=== PATIENT | male | born 1960 | race Caucasian/White ===

== ENCOUNTER 2021-07-11 18:07 | Inpatient (IN) | payer MEDICAID, OTHER ==
[~2021-07-11] VITALS: Ht 177.8 cm; Wt 101.7 kg
--- NOTE | 2021-07-11 19:20 | NUR ---
pt bibs c/o Abdominal discomfort and urinary frequency x 3 weeks. pt alert and oriented x3. ambulatory with non labored breathing.
[2021-07-11 19:53] LABS: CREATININE 0.7 mg/dL (0.6-1.3); POTASSIUM 3.7 mmol/L (3.5-5.1)
[2021-07-11 19:55] LABS: BASOPHILS % (AUTO) 0.6 % (0.0-2.0); EOSINOPHILS % (AUTO) 2.6 % (0.0-6.0); HEMATOCRIT 42 % (39-51); HEMOGLOBIN 14.2 g/dL (13.5-17.5); LYMPHOCYTES # (AUTO) 0.7 K/uL (0.8-4.8); LYMPHOCYTES % (AUTO) 15.7 % (20.0-44.0); MEAN CORPUSCULAR HGB CONC 34 g/dl (31.0-36.0); MEAN CORPUSCULAR VOLUME 110 fL (80-96); MONOCYTES # (AUTO) 0.6 K/uL (0.1-1.30); MONOCYTES % (AUTO) 12.8 % (2.0-12.0); NEUTROPHILS # (AUTO) 3.1 K/uL (1.8-8.9); NEUTROPHILS % (AUTO) 68.3 % (43.0-81.0); PLATELET COUNT (AUTO) 88 K/uL (150-450); RED BLOOD CELL COUNT(AUTO) 3.82 MIL/uL (4.5-6.0); WHITE BLOOD COUNT (AUTO) 4.6 K/uL (4.3-11.0)
[2021-07-11] MEDS ORDERED: IOHEXOL-300 100 ML VIAL IV ONE (19:58)
[2021-07-11 19:59] LABS: ALBUMIN 2.3 g/dL (3.4-5.0); BILIRUBIN,DIRECT 5.8 mg/dL (0.0-0.2); BILIRUBIN,TOTAL 7.5 mg/dL (0.2-1.0); TOTAL PROTEIN, SERUM 6.9 g/dL (6.4-8.2)
[2021-07-11 20:31] LABS: BAND % (MANUAL) 1 % (0.0-5.0); EOSINOPHILS % (MANUAL) 3 % (0-4); LYMPHOCYTES % (MANUAL) 19 % (16-48); MONOCYTES % (MANUAL) 7 % (0-11.0); NEUTROPHILS % (MANUAL) 70 (42-76)
[2021-07-11] MEDS ORDERED: IV NS 0.9% 1,000 ML BAG IV ONE (22:00)
[2021-07-11 22:27] LABS: BILIRUBIN,URINE LARGE (NEGATIVE); COLOR,URINE AMBER (YELLOW); LEUKOCYTE ESTERASE ,URINE NEGATIVE (NEGATIVE); NITRITE, URINE POSITIVE (NEGATIVE); PH,URINE 7.5 (5.0-8.0); PROTEIN,URINE TRACE mg/dl (NEGATIVE); UGLUCOSE 100 MG/DL mg/dL (NEGATIVE); UROBILINOGEN,URINE >=8.0 EU/dL (0.2)
--- NOTE | 2021-07-11 22:58 | NUR ---
SPOKE WITH INSURANCE
[2021-07-11] MEDS ORDERED: CEFTRIAXONE 1 G VIAL ONE (22:59)
[2021-07-11] MEDS ORDERED: CEFTRIAXONE 1GM BAG (ER ONLY) 1 GM/50 ML PIGGYBACK IV ONE (23:00)
--- NOTE | 2021-07-12 02:07 | NUR ---
REPORT GIVEN TO PHAN
--- NOTE | 2021-07-12 02:15 | NUR ---
PATIENT BEING TRANSFERRRED TO [facility]
[2021-07-12 02:20] VITALS: BP 126/84
[2021-07-12 02:57] LABS: BACTERIA,URINE None seen /HPF (None Seen); RBC,URINE 0-2 /HPF (0-2); SQUAMOUS EPITHELIAL CELL,UR None Seen /HPF (None Seen); WBC,URINE 0-2 /HPF (0-3)
[2021-07-12] MEDS ORDERED: Z GUARD REMEDY 2 OZ OINT TP PRN (04:00)
[2021-07-12] MEDS ORDERED: ONDANSETRON HCL/PF 4 MG/2 ML VIAL IVP PRN (04:00)
[2021-07-12] MEDS: IV NS 0.9% 1,000 ML IV PRN (04:59)
[2021-07-12 06:49] LABS: BASOPHILS % (AUTO) 0.6 % (0.0-2.0); EOSINOPHILS % (AUTO) 3.4 % (0.0-6.0); HEMATOCRIT 38 % (39-51); HEMOGLOBIN 13.2 g/dL (13.5-17.5); LYMPHOCYTES # (AUTO) 0.6 K/uL (0.8-4.8); LYMPHOCYTES % (AUTO) 15.1 % (20.0-44.0); MEAN CORPUSCULAR HGB CONC 34 g/dl (31.0-36.0); MEAN CORPUSCULAR VOLUME 110 fL (80-96); MONOCYTES # (AUTO) 0.6 K/uL (0.1-1.30); MONOCYTES % (AUTO) 13.8 % (2.0-12.0); NEUTROPHILS # (AUTO) 2.8 K/uL (1.8-8.9); NEUTROPHILS % (AUTO) 67.1 % (43.0-81.0); PLATELET COUNT (AUTO) 76 K/uL (150-450); RED BLOOD CELL COUNT(AUTO) 3.49 MIL/uL (4.5-6.0); WHITE BLOOD COUNT (AUTO) 4.2 K/uL (4.3-11.0)
[2021-07-12 07:04] LABS: CALCIUM, SERUM 7.8 mg/dL (8.5-10.1); CREATININE 0.6 mg/dL (0.6-1.3); MAGNESIUM 1.8 mg/dL (1.8-2.4); POTASSIUM 3.7 mmol/L (3.5-5.1)
[2021-07-12 07:07] LABS: THYROID STIMULATING HORMONE 1.617 uIU/mL (0.358-3.74)
[2021-07-12 08:00] VITALS: BP 118/76
[2021-07-12] MEDS: PANTOPRAZOLE 40 MG TABLET.DR PO SCH (08:35)
[2021-07-12 11:04] LABS: EOSINOPHILS % (MANUAL) 5 % (0-4); LYMPHOCYTES % (MANUAL) 17 % (16-48); MONOCYTES % (MANUAL) 12 % (0-11.0); NEUTROPHILS % (MANUAL) 66 (42-76)
[2021-07-12 12:00] VITALS: BP 120/76
--- NOTE | 2021-07-12 13:42 | NUR ---
MS/RN NEW ORDERS FROM DR MRAIN RECEIVED AND CARRIED OUT
[2021-07-12] MEDS: NICOTINE PATCH (14MG) 14 MG PATCH.TD24 TD SCH (14:45)
[2021-07-12 16:00] VITALS: BP 101/60
--- NOTE | 2021-07-12 18:23 | NUR ---
MS RN CLOSING NOTE PATIENT RESTING IN BED, APPEARS COMFORTABLE AND NOT IN ANY DISTRESS. PT IS STABLE ON ROOM AIR, NO SOB OR S/S OF RESPIRATORY DISTRESS NOTED. IV ACCESS INTACT AND INFUSING WELL. MEDICATIONS GIVEN ORDERED, PT NEEDS MET THROUGHOUT SHIFT. SAFETY PRECAUTIONS IN PLACE: BED LOCKED IN LOW POSITION, SIDE RAILS UP X2, CALL LIGHT AND TABLE WITHIN REACH. WILL ENDORSE TO VACUUM CLEANER REPAIRER NURSE FOR CONTINUITY OF CARE
--- NOTE | 2021-07-12 19:10 | NUR ---
MS RN OPENING NOTES: RECEIVED PATIENT IN BED, EATING, A/O X4. NO S/S OF DISTRESS NOTED. NO COMPLAIN OF PAIN. CALL LIGHT WITHIN REACH. BED IN LOWEST AND LOCKED POSITION. BED ALARM ON.
--- NOTE | 2021-07-12 19:32 | NUR ---
in bed alert and orientated x4 no pain at this time states the numbness comes and goes in his right arm and hand movement in his extremities all within normal ROM resp even and unlabored SR on the monitor swallows w/o problems
[2021-07-12 20:00] VITALS: BP 118/72
[2021-07-12] MEDS: ACETAMINOPHEN 325 MG TABLET PO PRN ×2 (20:22→23:10)
[2021-07-12] MEDS: CEFTRIAXONE 1 G in IV D5W 50 ML IV SCH (23:02)
[2021-07-12] MEDS: ZOLPIDEM TARTRATE 5 MG TABLET PO PRN (23:10)
[2021-07-13] MEDS: MORPHINE SULFATE INJ 2 MG/ML DISP.SYRIN IV PRN ×2 (00:04→15:41)
--- NOTE | 2021-07-13 07:15 | NUR ---
Opening note: In bed alert and oriented x4 No pain at this time movement in extremities all within normal ROM Resp even and unlabored swallows w/o problems Addendum: 07/13/21 at 1114 by HAMZAH WANG RN MS Opening note RECEIVED PATIENT ALERT AND ORIENTED X4 PATIENT WITH REGULAR AND UNLABORED BREATHING ON ROOM AIR, TOLERATED WELL. NO SIGNS AND SYMPTOMS OF DISTRESS NOTED. NO COMPLAIN OF PAIN OR DISCOMFORT AT THIS TIME. PATIENT IS AMBULATORY WITH NO WEAKNESS NOTED. WITH IV ACCESS LEFT AC G18 ON NS @ 75ML/HR ACCESS PATENT AND INTACT. LEFT KNEE AND LEFT LEG SCABS, LEFT ARM BRUISE AND RLQ ABDOMEN BRUISE SAFETY PRECAUTIONS ENFORCED WITH BED LOCKED AND AT LOWEST POSITION SIDERAILS UP. CALL LIGHT WITHUN REACH AT ALL TIMES. WILL CONTINUE TO MONITOR.
[2021-07-13 07:34] LABS: CHOLESTEROL 117 mg/dL (<200); HDL CHOLESTEROL 10 mg/dL (40-60); LDL 85 mg/dL (0-99); TRIGLYCERIDES 155 mg/dL (30-150)
[2021-07-13 08:00] VITALS: BP 123/79
[2021-07-13] MEDS: NICOTINE PATCH (14MG) 14 MG PATCH.TD24 TD SCH (08:37)
[2021-07-13] MEDS: PANTOPRAZOLE 40 MG TABLET.DR PO SCH (08:37)
[2021-07-13] MEDS: ALBUTEROL FS 2.5 MG/0.5 ML VIAL.NEB HHN PRN (09:53)
[2021-07-13] MEDS: IV NS 0.9% 1,000 ML IV PRN ×2 (10:10→23:20)
--- NOTE | 2021-07-13 10:41 | NUR ---
MS RN NOTE PATIENT SEEN BY DR. DAVILA.
[2021-07-13 16:00] VITALS: BP 125/73
--- NOTE | 2021-07-13 16:30 | NUR ---
MS RN NOTE PER DR. BRANTLEY, CONTINUE SAME IV FLUID. PHARMACIST NOTIFIED.
--- NOTE | 2021-07-13 18:49 | NUR ---
MS CLOSING RN NOTE PATIENT ALERT AND ORIENTED X4 PATIENT WITH REGULAR AND UNLABORED BREATHING ON ROOM AIR, TOLERATED WELL. NO SIGNS AND SYMPTOMS OF DISTRESS NOTED. NO COMPLAIN OF PAIN OR DISCOMFORT AT THIS TIME. PATIENT IS AMBULATORY WITH NO WEAKNESS NOTED. WITH IV ACCESS LEFT AC G18 ON NS @ 75ML/HR ACCESS PATENT AND INTACT. LEFT KNEE AND LEFT LEG SCABS, LEFT ARM BRUISE AND RLQ ABDOMEN BRUISE SAFETY PRECAUTIONS ENFORCED WITH BED LOCKED AND AT LOWEST POSITION SIDERAILS UP. CALL LIGHT WITHUN REACH AT ALL TIMES. WILL ENDORSE CONTINUITY OF CARE TO NEXT SHIFT.
--- NOTE | 2021-07-13 20:00 | NUR ---
Patient is A&Ox4. VSS. No signs of distress. Slightly jaundiced skin, apparent ascites, tea-colored urine in urinal. Patient states current issue is mild abdominal pain, mild headache, and lack of appetite. Will give PRN tylenol as ordered and educate patient to use sparingly d/t liver complications. O2 sat 90% on RA says he feels slightly SOB given 2L O2 via NC. Will continue to monitor.
--- NOTE | 2021-07-13 20:20 | NUR ---
O2 sat went up to 97% on 2L NC.
[2021-07-13] MEDS: ACETAMINOPHEN 325 MG TABLET PO PRN (21:21)
[2021-07-13 21:49] VITALS: BP 119/56
--- NOTE | 2021-07-13 22:00 | NUR ---
Patient reports headache relief but still has tolerable abdominal discomfort d/t ascites. Educated on how positioning might affect comfort.
[2021-07-13] MEDS: CEFTRIAXONE 1 G in IV D5W 50 ML IV SCH (23:14)
--- NOTE | 2021-07-14 00:30 | NUR ---
Read through noted and saw "NPO" for patient. Removed fluids from patients room and hung NPO sign outside of patient's door. Will educate patient when he wakes.
[2021-07-14 06:29] LABS: BASOPHILS % (AUTO) 0.4 % (0.0-2.0); EOSINOPHILS % (AUTO) 2.6 % (0.0-6.0); HEMATOCRIT 36 % (39-51); HEMOGLOBIN 12.3 g/dL (13.5-17.5); LYMPHOCYTES # (AUTO) 0.7 K/uL (0.8-4.8); LYMPHOCYTES % (AUTO) 15.6 % (20.0-44.0); MEAN CORPUSCULAR HGB CONC 34 g/dl (31.0-36.0); MEAN CORPUSCULAR VOLUME 110 fL (80-96); MONOCYTES # (AUTO) 0.5 K/uL (0.1-1.30); MONOCYTES % (AUTO) 10.1 % (2.0-12.0); NEUTROPHILS # (AUTO) 3.2 K/uL (1.8-8.9); NEUTROPHILS % (AUTO) 71.3 % (43.0-81.0); PLATELET COUNT (AUTO) 93 K/uL (150-450); RED BLOOD CELL COUNT(AUTO) 3.29 MIL/uL (4.5-6.0); WHITE BLOOD COUNT (AUTO) 4.5 K/uL (4.3-11.0)
[2021-07-14 06:44] LABS: CALCIUM, SERUM 7.4 mg/dL (8.5-10.1); CREATININE 0.7 mg/dL (0.6-1.3); MAGNESIUM 1.6 mg/dL (1.8-2.4); PHOSPHORUS 2.9 mg/dL (2.5-4.9); POTASSIUM 3.3 mmol/L (3.5-5.1)
--- NOTE | 2021-07-14 06:54 | NUR ---
Patient has been A&Ox4. able to lay on his side overnight to avoid pressure of ascites on him. Patient reports no longer SOB and slept well throughout night though easy to wake. No signs of distress. Tolerated IV ABX well, no ase.
[2021-07-14 06:56] LABS: ALBUMIN 1.8 g/dL (3.4-5.0); BILIRUBIN,DIRECT 4.9 mg/dL (0.0-0.2); BILIRUBIN,TOTAL 6.1 mg/dL (0.2-1.0); TOTAL PROTEIN, SERUM 5.8 g/dL (6.4-8.2)
--- NOTE | 2021-07-14 07:30 | NUR ---
PT RECEIVED RESTING COMFORTABLY IN BED. NO S/S OR C/O PAIN OR DISTRESS NOTED. SIDE RAILS UP X2, CALL LIGHT LEFT WITHIN REACH. WILL CONTINUE PLAN OF CARE.
[2021-07-14 08:06] VITALS: BP 113/83
[2021-07-14] MEDS ORDERED: POTASSIUM CHLORIDE 20 MEQ TAB.PRT.SR PO SCH (08:30)
[2021-07-14] MEDS: NICOTINE PATCH (14MG) 14 MG PATCH.TD24 TD SCH (10:32)
[2021-07-14] MEDS: Magnesium 1GM/D5W 100ML PREMIX 100 ML IV SCH ×2 (10:32→11:39)
[2021-07-14] MEDS: PANTOPRAZOLE 40 MG TABLET.DR PO SCH (10:32)
[2021-07-14] MEDS: MORPHINE SULFATE INJ 2 MG/ML DISP.SYRIN IV PRN ×2 (15:07→23:26)
[2021-07-14 16:37] VITALS: BP 122/76
--- NOTE | 2021-07-14 17:45 | NUR ---
NOTIFIED TOMAS OF MRCP RESULTS. AWAITING ORDERS.
[2021-07-14] MEDS: IV NS 0.9% 1,000 ML IV PRN (18:29)
--- NOTE | 2021-07-14 18:48 | NUR ---
CHANGE OF SHIFT REPORT PT RESTING COMFORTABLY IN BED. NO S/S OR C/O PAIN OR DISTRESS NOTED. SIDE RAILS UP X2, CALL LIGHT LEFT WITHIN REACH. PT KEPT CLEAN DRY, AND COMFORTABLE. NO SIGNIFICANT CHANGES SINCE PREVIOUS SHIFT.
--- NOTE | 2021-07-14 19:20 | NUR ---
RN NOTES RECEIVED PT AWAKE IN BED, WATCHING TV. A/OX4. ABLE TO VERBALIZE ALL NEEDS. HE DENIES PAIN, DENIES SOB AT THIS TIME. RESPIRATIONS EVEN/UNLABORED. IV SITE: [facility] INTACT/PATENT, ONGOING NS @75ML/HR AND RAFFY WELL. NPO OBSERVED. PT VERBALIZED UNDERSTANDING. PT IN NO ACUTE DISTRESS. SAFETY MEASURES IN PLACE, BED IN LOWEST LOCKED POSITION, S/R UPX2, CALL LIGHT WITHIN REACH. WILL CONT TO MONITOR.
[2021-07-14 20:00] VITALS: BP_SYST 105; BP_SYST 113; BP_DIAS 58; BP_DIAS 62
[2021-07-14] MEDS: CEFTRIAXONE 1 G in IV D5W 50 ML IV SCH (22:54)
[2021-07-15] MEDS: ZOLPIDEM TARTRATE 5 MG TABLET PO PRN (03:12)
[2021-07-15 06:26] LABS: BASOPHILS % (AUTO) 0.4 % (0.0-2.0); EOSINOPHILS % (AUTO) 2.8 % (0.0-6.0); HEMATOCRIT 37 % (39-51); HEMOGLOBIN 12.8 g/dL (13.5-17.5); LYMPHOCYTES # (AUTO) 0.8 K/uL (0.8-4.8); LYMPHOCYTES % (AUTO) 12.9 % (20.0-44.0); MEAN CORPUSCULAR HGB CONC 35 g/dl (31.0-36.0); MEAN CORPUSCULAR VOLUME 110 fL (80-96); MONOCYTES # (AUTO) 0.4 K/uL (0.1-1.30); MONOCYTES % (AUTO) 7.6 % (2.0-12.0); NEUTROPHILS # (AUTO) 4.5 K/uL (1.8-8.9); NEUTROPHILS % (AUTO) 76.3 % (43.0-81.0); PLATELET COUNT (AUTO) 102 K/uL (150-450); RED BLOOD CELL COUNT(AUTO) 3.36 MIL/uL (4.5-6.0); WHITE BLOOD COUNT (AUTO) 5.9 K/uL (4.3-11.0)
--- NOTE | 2021-07-15 06:54 | NUR ---
RN CLOSING NOTES PT RESTING IN BED, EASILY AROUSABLE TO STIMULI, A/OX4. DENIES PAIN/DISCOMFORT AT THIS TIME. RESPIRATIONS EVEN/UNLABORED. ONGOING IV NS @75ML/HR AND RAFFY WELL. NPO OBSERVED. AMBULATES TO BR WITH SBA PROVIDED. NO ACUTE EVENTS NOTED DURING THE NIGHT. SAFETY MEASURES MAINTAINED. ALL NEEDS ATTENDED TO.
[2021-07-15 07:19] LABS: ALBUMIN 1.9 g/dL (3.4-5.0); BILIRUBIN,DIRECT 5.2 mg/dL (0.0-0.2); BILIRUBIN,TOTAL 6.6 mg/dL (0.2-1.0); CALCIUM, SERUM 7.6 mg/dL (8.5-10.1); CREATININE 0.6 mg/dL (0.6-1.3); MAGNESIUM 2.1 mg/dL (1.8-2.4); PHOSPHORUS 2.8 mg/dL (2.5-4.9); POTASSIUM 3.7 mmol/L (3.5-5.1); TOTAL PROTEIN, SERUM 6.2 g/dL (6.4-8.2)
--- NOTE | 2021-07-15 07:30 | NUR ---
RECEIVED PT.IN AM ALERT AND ORIENTED.VS STABLE.
[2021-07-15 08:00] VITALS: BP 132/75
--- NOTE | 2021-07-15 10:30 | NUR ---
call in to md office dr. king for gi consult,spoke to md,aware to see pt.
[2021-07-15] MEDS: NICOTINE PATCH (14MG) 14 MG PATCH.TD24 TD SCH (11:06)
[2021-07-15] MEDS: IV NS 0.9% 1,000 ML IV PRN (11:07)
--- NOTE | 2021-07-15 14:00 | NUR ---
ULTRASOUND PARACENTESIS DONE.OBTAINED 4960 ML.
[2021-07-15] MEDS: PANTOPRAZOLE 40 MG VIAL IV SCH (14:59)
[2021-07-15] MEDS: PIPERACILLIN /TAZOBACTAM 3.375 G in IV D5W 50 ML IV SCH ×2 (14:59→18:21)
--- NOTE | 2021-07-15 15:20 | NUR ---
PARACENTESIS FLUID TO LAB.TESTED FOR CELL COUNT,ALBUMIN AND CULTURE AND SENSITIVITY.
[2021-07-15 16:00] VITALS: BP 125/70
--- NOTE | 2021-07-15 18:00 | NUR ---
PT. AGITATED AND UPSET,STATES DID NOT SEE MD TODAY AND UPSET ABOUT BEING NPO.OFFERED AGAIN MOUTH CARE AND REFUSED.
--- NOTE | 2021-07-15 19:00 | NUR ---
MS RN OPENING NOTE RECEIVED PT IN BED, RESTING. A/O X4. PT IS ON ROOM AIR, NO SOB OR RESPIRATORY DISTRESS NOTED, NO C/O PAIN AT THIS TIME. RESPIRATIONS EVEN AND UNLABORED. IV ACCESS NOTED IN LEFT AC G#18 INTACT, PATENT AND FLUSHING WELL, NS INFUSING AT 75ML/HR. FALL AND SAFETY MEASURES IN PLACE AND MAINTAINED AT ALL TIMES. BED ALARM, BED IN LOW AND LOCKED POSITION, HOB ELEVATED TO SEMI FOWLERS POSITION, CALL LIGHT AND TABLE WITHIN REACH. SIDE RAILS UP X2. WILL CONTINUE WITH PLAN OF CARE.
[2021-07-15 20:00] VITALS: BP 125/79
[2021-07-15] MEDS: ACETAMINOPHEN 325 MG TABLET PO PRN (20:07)
--- NOTE | 2021-07-15 20:07 | NUR ---
PT C/O PAIN PER PT REQUEST TYLENOL 650MG PO Q6HR PRN ADMINISTERED AT THIS TIME PER ORDER. WILL CONTINUE TO MONITOR.
[2021-07-15 20:32] VITALS: BP 125/79
[2021-07-15] MEDS: MORPHINE SULFATE INJ 2 MG/ML DISP.SYRIN IV PRN (21:11)
--- NOTE | 2021-07-15 21:11 | NUR ---
PT C/O 9/10 PAIN PER PT REQUEST MORPHINE 2MG/1ML IV Q4HR PRN ADMINISTERED AT THIS TIME PER ORDER. WILL CONTINUE TO MONITOR.
[2021-07-16] MEDS: PIPERACILLIN /TAZOBACTAM 3.375 G in IV D5W 50 ML IV SCH ×5 (00:42→23:00)
[2021-07-16 06:29] LABS: BASOPHILS % (AUTO) 0.3 % (0.0-2.0); EOSINOPHILS % (AUTO) 2.7 % (0.0-6.0); HEMATOCRIT 37 % (39-51); HEMOGLOBIN 12.7 g/dL (13.5-17.5); LYMPHOCYTES # (AUTO) 0.5 K/uL (0.8-4.8); LYMPHOCYTES % (AUTO) 8.9 % (20.0-44.0); MEAN CORPUSCULAR HGB CONC 34 g/dl (31.0-36.0); MEAN CORPUSCULAR VOLUME 110 fL (80-96); MONOCYTES # (AUTO) 0.4 K/uL (0.1-1.30); MONOCYTES % (AUTO) 7.4 % (2.0-12.0); NEUTROPHILS # (AUTO) 4.1 K/uL (1.8-8.9); NEUTROPHILS % (AUTO) 80.7 % (43.0-81.0); PLATELET COUNT (AUTO) 108 K/uL (150-450); RED BLOOD CELL COUNT(AUTO) 3.38 MIL/uL (4.5-6.0); WHITE BLOOD COUNT (AUTO) 5.1 K/uL (4.3-11.0)
--- NOTE | 2021-07-16 06:33 | NUR ---
MS RN CLOSING NOTE PT RESTING IN BED AT THIS TIME. EASILY AROUSED, PT REMAINED STABLE THROUGHOUT SHIFT.ALL NEEDS, MEDICATIONS, AND CARE ADMINISTERED ANTICIPATED PER ORDER. SAFETY PRECAUTIONS IN PLACE AND MAINTAINED AT ALL TIMES. BED IN LOWEST, LOCKED POSITION, HOB ELEVATED, SIDE RAILS UP X2. CALL LIGHT AND TABLE WITHIN REACH. WILL ENDORSE TO ONCOMING NURSE FOR KEN.
[2021-07-16 06:55] LABS: ALBUMIN 1.7 g/dL (3.4-5.0); CALCIUM, SERUM 7.3 mg/dL (8.5-10.1); CREATININE 0.7 mg/dL (0.6-1.3); MAGNESIUM 1.8 mg/dL (1.8-2.4); PHOSPHORUS 2.5 mg/dL (2.5-4.9); TOTAL PROTEIN, SERUM 5.7 g/dL (6.4-8.2)
--- NOTE | 2021-07-16 07:30 | NUR ---
received pt. alert and oriented x4.no complaints offered.
[2021-07-16 08:00] VITALS: BP 114/66
[2021-07-16 09:29] LABS: POTASSIUM 3.8 mmol/L (3.5-5.1)
[2021-07-16] MEDS: PANTOPRAZOLE 40 MG VIAL IV SCH (10:33)
[2021-07-16] MEDS: NICOTINE PATCH (14MG) 14 MG PATCH.TD24 TD SCH (10:33)
[2021-07-16] MEDS: ACETAMINOPHEN 325 MG TABLET PO PRN (10:44)
[2021-07-16] MEDS: IV NS 0.9% 1,000 ML IV PRN (10:50)
[2021-07-16 16:00] VITALS: BP 124/60
--- NOTE | 2021-07-16 18:30 | NUR ---
midday medicated for headache with tylenol [address]an in and ordered food for pt.
--- NOTE | 2021-07-16 19:40 | NUR ---
MS RN OPENING NOTES PATIENT WAS SEEN AWAKE IN BED RESTING. PATIENT'S ALERT AND ORIENTEDX4. PATIENT'S ON 2LPM OF OXYGEN VIA NASAL CANNULA WITH NO RESPIRATORY DISTRESS NOTED. IV ACCESS NOTED ON LEFT AC GAUGE #18, WHICH IS INTACT, PATENT, AND FLUSHING WELL. PATIENT'S IN NO ACUTE DISTRESS AT THIS TIME. SAFETY MEASURES IN PLACE: BED LOCKED, BED ALARM ON, SIDE RAILS UPX3, AND CALL LIGHT WITHIN REACH. WILL CONTINUE TO MONITOR THE PATIENT.
[2021-07-16 20:00] VITALS: BP 126/70
[2021-07-16] MEDS: ZOLPIDEM TARTRATE 5 MG TABLET PO PRN (20:10)
--- NOTE | 2021-07-16 20:10 | NUR ---
MS RN NOTES PATIENT CURRENT C/O NO SLEEP. PATIENT WAS GIVEN 5MG OF AMBIEN PO. WILL REASSESS THE PATIENT AT 2109.
--- NOTE | 2021-07-16 21:47 | NUR ---
MS BALTAZAR OPENING NOTES PATIENT WAS SEEN AWAKE IN BED RESTING. PATIENT'S ALERT AND ORIENTEDX4. PATIENT'S ON 2LPM OF OXYGEN VIA NASAL CANNULA WITH NO RESPIRATORY DISTRESS NOTED. IV ACCESS NOTED ON LEFT AC GAUGE #18, WHICH IS INTACT, PATENT, AND FLUSHING WELL. PATIENT'S IN NO ACUTE DISTRESS AT THIS TIME. SAFETY MEASURES IN PLACE: BED LOCKED, BED ALARM ON, SIDE RAILS UPX3, AND CALL LIGHT WITHIN REACH. WILL CONTINUE TO MONITOR THE PATIENT. Addendum: 07/17/21 at 0332 by MARY LEDEZMA RN DISREGARD THIS NOTE
[2021-07-16] MEDS: ALBUTEROL FS 2.5 MG/0.5 ML VIAL.NEB HHN PRN (22:46)
[2021-07-16] MEDS ORDERED: FUROSEMIDE 20 MG TABLET PO ONE (23:30)
--- NOTE | 2021-07-16 23:31 | NUR ---
MS RN NOTES PATIENT C/O OF COUGH AFTER HIS PRN BREATHING TX (VENTOLIN 2.5MG/O.5ML) NEB. NOTIFIED DR. ARMSTRONG. DR. ARMSTRONG ORDERED 20MG OF LASIX PO FOR COUGH AND DISTENDED ABDOMEN. WILL CONTINUE TO MONITOR THE PATIENT.
[2021-07-17] MEDS: PIPERACILLIN /TAZOBACTAM 3.375 G in IV D5W 50 ML IV SCH ×3 (05:27→17:01)
[2021-07-17 06:21] LABS: BASOPHILS % (AUTO) 0.5 % (0.0-2.0); EOSINOPHILS % (AUTO) 2.5 % (0.0-6.0); HEMATOCRIT 36 % (39-51); HEMOGLOBIN 12.6 g/dL (13.5-17.5); LYMPHOCYTES # (AUTO) 0.6 K/uL (0.8-4.8); LYMPHOCYTES % (AUTO) 9.2 % (20.0-44.0); MEAN CORPUSCULAR HGB CONC 35 g/dl (31.0-36.0); MEAN CORPUSCULAR VOLUME 110 fL (80-96); MONOCYTES # (AUTO) 0.5 K/uL (0.1-1.30); MONOCYTES % (AUTO) 7.5 % (2.0-12.0); NEUTROPHILS # (AUTO) 5.3 K/uL (1.8-8.9); NEUTROPHILS % (AUTO) 80.3 % (43.0-81.0); PLATELET COUNT (AUTO) 116 K/uL (150-450); WHITE BLOOD COUNT (AUTO) 6.6 K/uL (4.3-11.0)
--- NOTE | 2021-07-17 06:51 | NUR ---
MS RN CLOSING NOTES PATIENT WAS SEEN SLEEPING IN BED. PATIENT'S ALERT AND ORIENTED X4. PATIENT'S ON ROOM AIR WITH NO RESPIRATORY DISTRESS NOTED. IV ACCESS NOTED ON LEFT AC GAUGE #18 RUNNING NS AT 75ML/HR. PATIENT'S IN NO ACUTE DISTRESS AT THIS TIME. SAFETY MEASURES IN PLACE: BED LOCKED, BED ALARM ON, SIDE RAILS UP X3, AND CALL LIGHT WITHIN REACH OF THE PATIENT. WILL ENDORSE CARE TO THE DAY SHIFT NURSE.
[2021-07-17 06:57] LABS: ALBUMIN 1.7 g/dL (3.4-5.0); BILIRUBIN,TOTAL 6.1 mg/dL (0.2-1.0); CALCIUM, SERUM 7.2 mg/dL (8.5-10.1); CREATININE 0.8 mg/dL (0.6-1.3); MAGNESIUM 1.7 mg/dL (1.8-2.4); PHOSPHORUS 2.5 mg/dL (2.5-4.9); POTASSIUM 3.1 mmol/L (3.5-5.1)
--- NOTE | 2021-07-17 07:30 | NUR ---
MS RN OPENING NOTES RECEIVED PATIENT ON BED, AWAKE AND A/O X4. ON ROOM AIR TOLERATING WELL. NO SOB NOTED. NOT IN DISTRESS. WITH NO COMPLAINTS OF PAIN AT THIS TIME. WITH IV ACCESS AT LEFT AC G18 WITH NS AT 75ML/HR INFUSING WELL. SAFETY MEASURES IN PLACE. CALL LIGHT WITHIN REACH. BED ON LOWEST AND LOCKED POSITION, SIDE RAILS UP X2. WILL CONTINUE TO MONITOR.
[2021-07-17 08:00] VITALS: BP 126/71
[2021-07-17] MEDS: NICOTINE PATCH (14MG) 14 MG PATCH.TD24 TD SCH (08:30)
[2021-07-17] MEDS: PANTOPRAZOLE 40 MG VIAL IV SCH (08:30)
[2021-07-17] MEDS: POTASSIUM CHLORIDE 20 MEQ TAB.PRT.SR PO SCH ×2 (10:23→12:32)
[2021-07-17] MEDS: Magnesium 1GM/D5W 100ML PREMIX 100 ML IV SCH ×2 (10:23→12:59)
[2021-07-17] MEDS: ALBUTEROL FS 2.5 MG/0.5 ML VIAL.NEB HHN PRN (10:31)
[2021-07-17 16:00] VITALS: BP 111/69
--- NOTE | 2021-07-17 18:39 | NUR ---
MS RN CLOSING NOTES PATIENT RESTING ON BED, AWAKE AND A/O X4. ON ROOM AIR TOLERATING WELL. NO SOB NOTED. NOT IN DISTRESS. WITH NO COMPLAINTS OF PAIN AT THIS TIME. WITH IV ACCESS AT LEFT AC G18, SALINE LOCKED, INTACT AND PATENT. SAFETY MEASURES IN PLACE. CALL LIGHT WITHIN REACH. BED ON LOWEST AND LOCKED POSITION, SIDE RAILS UP X2. FOR DISCHARGE TO HOME AWAITING FOR HIS FRIEND TO PICK HIM UP AT 9PM. WILL ENDORSE TO NEXT SHIFT FOR KEN.
[2021-07-17 20:00] VITALS: BP 125/75
--- NOTE | 2021-07-17 20:00 | NUR ---
MS RN NOTES RECEIVED PT AWAKE A/O X 4. NOT IN ANY DISTRESS. NO SOB NOTED. DENIES ANY PAIN OR DISCOMFORT AT THIS TIME. WITH IV-HL PATENT & INTACT. PT FOR D/C HOME TONIGHT AT 2100. AWAITING FOR PICKUP. D/C INTRUCTIONS PROVIDED BY DAY SHIFT RN. UNABLE TO TAKE PHOTOS, 2 CAMERAS NOT WORKING. CALL LIGHT WITHIN REACH. BED IN LOWEST POSITION. SR UP X 2 FOR SAFETY. WILL CONTINUE TO MONITOR.
--- NOTE | 2021-07-17 21:00 | NUR ---
MS RN NOTES FRIEND CAME [facility] PT. IV-HL D/CD. PT TOLERATED WELL. BELONGINGS SENT HOME WITH PT WELL PRESCRIPTIONS. PT ASSISTED DOWNSTAIRS BY SUPERVISOR METAL PLACING VIA WHEELCHAIR. AFEBRILE. VSS. SKIN INTACT.
== END 2021-07-17 21:20 | disposition home or self-care (01) | DRG 248 ==
LOC: ER 18:21 → TELE 07-12 01:47 → MED 07-12 03:47
PROVIDERS: ADMIT Student in an Organized Health Care Education/Training Program
PROC: 0W9G3ZZ Drainage of Peritoneal Cavity, Percutaneous Approach (ICD-10-PCS; principal; 2021-07-15)
DX: K65.2 Spontaneous bacterial peritonitis (principal); K70.31 Alcoholic cirrhosis of liver with ascites; D69.6 Thrombocytopenia, unspecified; E44.0 Moderate protein-calorie malnutrition; K76.6 Portal hypertension; E88.09 Other disorders of plasma-protein metabolism, not elsewhere classified; K80.10 Calculus of gallbladder with chronic cholecystitis without obstruction; R16.2 Hepatomegaly with splenomegaly, not elsewhere classified; K76.0 Fatty (change of) liver, not elsewhere classified; K59.00 Constipation, unspecified; D53.9 Nutritional anemia, unspecified; E83.42 Hypomagnesemia; E87.6 Hypokalemia; R74.01 Elevation of levels of liver transaminase levels; Z20.822 Contact with and (suspected) exposure to COVID-19; Z68.32 Body mass index [BMI] 32.0-32.9, adult; Z87.891 Personal history of nicotine dependence; L29.9 Pruritus, unspecified
CPT/HCPCS: 36415; 70450-TC; 71045-TC; 74181-TC; 76705-TC; 76942-TC; 80048-TC; 80053-TC; 80061-TC; 80076-TC; 81001; 82040-TC; 82962-TC; 83605-TC; 83690-TC; 83735-TC; 84100-TC; 84443-TC; 85025-TC; 85610-TC; 87040-TC; 87070-TC; 87081-TC; 87086-TC; 88108-TC; 88305-TC; 89051-TC; 94799-TC; C9113; C9803; G0378; J0696; J2270; J2405; J2543; J3475; J7030; J7060; Q9967

== ENCOUNTER 2021-08-16 13:06 | Emergency (ER) | payer OTHER ==
[~2021-08-16] VITALS: Ht 177.8 cm; Wt 99.5 kg
--- NOTE | 2021-08-16 13:25 | NUR ---
DR JUÁREZ ASSESSING THE PATIENT.
--- NOTE | 2021-08-16 13:33 | NUR ---
BIBS FOR REMOVAL OF RLQ CATH FOR ABD FLUID DRAINAGE, BIBS FOR REMOVAL OF RLQ CATH FOR ABD FLUID DRAINAGE. DENIES PAIN. IN ROOM AIR AND DENIES SOB. RESPIRATION REGULAR AND UNLABORED. WILL CONTINUE TO MONITOR THE PATIENT.
--- NOTE | 2021-08-16 13:47 | NUR ---
IV LINE IS ESTABLISHED, BLOOD SPECIMEN COLLECTED AND SENT TO THE LAB. THE LINE IS SALINE LOCKED.
[2021-08-16 13:57] LABS: BASOPHILS # (AUTO) 0.1 K/uL (0.0-0.2); BASOPHILS % (AUTO) 1.6 % (0.0-2.0); EOSINOPHILS % (AUTO) 4.1 % (0.0-6.0); HEMATOCRIT 45 % (39-51); HEMOGLOBIN 15.1 g/dL (13.5-17.5); LYMPHOCYTES # (AUTO) 1.1 K/uL (0.8-4.8); LYMPHOCYTES % (AUTO) 23.3 % (20.0-44.0); MEAN CORPUSCULAR HGB CONC 34 g/dl (31.0-36.0); MEAN CORPUSCULAR VOLUME 106 fL (80-96); MONOCYTES # (AUTO) 0.3 K/uL (0.1-1.30); MONOCYTES % (AUTO) 5.5 % (2.0-12.0); NEUTROPHILS % (AUTO) 65.5 % (43.0-81.0); PLATELET COUNT (AUTO) 91 K/uL (150-450); RED BLOOD CELL COUNT(AUTO) 4.23 MIL/uL (4.5-6.0); WHITE BLOOD COUNT (AUTO) 4.6 K/uL (4.3-11.0)
--- NOTE | 2021-08-16 14:07 | NUR ---
X-RAY TECH AT THE BEDSIDE
--- NOTE | 2021-08-16 14:10 | NUR ---
COVID SWAB DONE AND SENT
[2021-08-16 14:11] LABS: ALBUMIN 2.3 g/dL (3.4-5.0); BILIRUBIN,TOTAL 1.5 mg/dL (0.2-1.0); CALCIUM, SERUM 8.3 mg/dL (8.5-10.1); CREATININE 1.1 mg/dL (0.6-1.3); POTASSIUM 4.5 mmol/L (3.5-5.1); TOTAL PROTEIN, SERUM 6.9 g/dL (6.4-8.2)
[2021-08-16 15:00] LABS: LYMPHOCYTES % (MANUAL) 25 % (16-48); NEUTROPHILS % (MANUAL) 64 (42-76)
[2021-08-16 15:01] LABS: EOSINOPHILS % (MANUAL) 5 % (0-4); MONOCYTES % (MANUAL) 6 % (0-11.0)
[2021-08-16] MEDS ORDERED: IV NS 0.9% 250 ML IV ONE (15:23)
[2021-08-16] MEDS ORDERED: IOHEXOL-300 100 ML VIAL IV ONE (15:23)
--- NOTE | 2021-08-16 16:46 | NUR ---
DR. MCNAIR SPEAKING WITH DR. JUÁREZ.
--- NOTE | 2021-08-16 17:04 | NUR ---
CALLED [facility] [phone] CASE IS BEING DECLINED DUE TO CAPACITY @ THIS TIME / SUSAN
--- NOTE | 2021-08-16 17:21 | NUR ---
CALLED [facility] [phone] [facility] FAXING CLINICALS TO [phone]
--- NOTE | 2021-08-16 17:26 | NUR ---
TEXTED DR. DILEEP GARCIA
--- NOTE | 2021-08-16 17:31 | NUR ---
CALLED [facility] [phone] CASE BEING DECLINED DUE TO OVER CAPACITY PER GERI.
--- NOTE | 2021-08-16 17:33 | NUR ---
CALLED [facility] [employer] LIBRARY PROFESSOR IS DOMINIQUE
--- NOTE | 2021-08-16 17:36 | NUR ---
CALLED [facility] SPEAKING WITH DR. JORDAN.
--- NOTE | 2021-08-16 17:55 | NUR ---
Patient discharged to home in stable condition. Written and verbal after care instructions given. Patient verbalizes understanding of instruction.
[2021-08-16 17:56] VITALS: BP 151/84
== END 2021-08-16 17:56 | disposition home or self-care (01) ==
LOC: ER 13:39
DX: Z48.03 Encounter for change or removal of drains (principal); K74.60 Unspecified cirrhosis of liver; K76.89 Other specified diseases of liver; R18.8 Other ascites; E88.09 Other disorders of plasma-protein metabolism, not elsewhere classified; E72.20 Disorder of urea cycle metabolism, unspecified; K80.20 Calculus of gallbladder without cholecystitis without obstruction; K76.6 Portal hypertension; I85.10 Secondary esophageal varices without bleeding; Z20.822 Contact with and (suspected) exposure to COVID-19
CPT/HCPCS: 36415; 71045; 74177; 80048; 80076; 82140; 83690; 85007; 85025; 85730; 87081; 87426; 93005; 99285; C9803; J7050; Q9967

== ENCOUNTER 2021-09-15 16:01 | Inpatient (IN) | payer OTHER ==
[~2021-09-15] VITALS: Ht 177.8 cm; Wt 99.8 kg
--- NOTE | 2021-09-15 16:05 | NUR ---
BIBS for c/o worsening abdominal pain x 1.5 weeks, abdominal drainange catheter malfunction per patient report, tachy 128bpm, afebrile. Rates abdominal pain 10/10. Respiration regular and unlabored. Will continue to monitor the patient.
--- NOTE | 2021-09-15 16:50 | NUR ---
DR CALI AT THE BEDSIDE
[2021-09-15] MEDS ORDERED: ONDANSETRON HCL/PF - ER 4 MG/2 ML VIAL IV ONE (17:00)
[2021-09-15] MEDS ORDERED: HYDROMORPHONE INJ 2 MG/ML DISP.SYRIN IV ONE (17:00)
[2021-09-15] MEDS ORDERED: IV NS 0.9% 500 ML BAG IV ONE (17:00)
[2021-09-15] MEDS ORDERED: ONDANSETRON HCL/PF 4 MG/2 ML VIAL ONE (17:04)
[2021-09-15] MEDS ORDERED: HYDROMORPHONE 1 MG/1 ML DISP.SYRIN ONE (17:05)
--- NOTE | 2021-09-15 17:12 | NUR ---
Xray in progress at BS
--- NOTE | 2021-09-15 17:14 | NUR ---
XRAY TAKEN TO CT VIA DAVID
[2021-09-15] MEDS ORDERED: IOHEXOL-300 100 ML VIAL IV ONE (17:15)
[2021-09-15] MEDS ORDERED: IV NS 0.9% 250 ML IV ONE (17:15)
--- NOTE | 2021-09-15 17:29 | NUR ---
PT RETURNED TO ER BED [address] V[address] CHRISTINAHERBERT
[2021-09-15 19:07] LABS: BASOPHILS % (AUTO) 0.5 % (0.0-2.0); EOSINOPHILS % (AUTO) 0.9 % (0.0-6.0); HEMATOCRIT 48 % (39-51); HEMOGLOBIN 16.6 g/dL (13.5-17.5); LYMPHOCYTES # (AUTO) 1.1 K/uL (0.8-4.8); LYMPHOCYTES % (AUTO) 27.7 % (20.0-44.0); MEAN CORPUSCULAR HGB CONC 34 g/dl (31.0-36.0); MEAN CORPUSCULAR VOLUME 104 fL (80-96); MONOCYTES # (AUTO) 0.3 K/uL (0.1-1.30); MONOCYTES % (AUTO) 8.8 % (2.0-12.0); NEUTROPHILS # (AUTO) 2.5 K/uL (1.8-8.9); NEUTROPHILS % (AUTO) 62.1 % (43.0-81.0); PLATELET COUNT (AUTO) 65 K/uL (150-450); RED BLOOD CELL COUNT(AUTO) 4.64 MIL/uL (4.5-6.0)
[2021-09-15 19:18] LABS: CALCIUM, SERUM 7.9 mg/dL (8.5-10.1); CARBON DIOXIDE 22 mmol/L (21-32); CHLORIDE 95 mmol/L (98-107); GLUCOSE 141 mg/dL (74-106); POTASSIUM 3.8 mmol/L (3.5-5.1); SODIUM SERUM 133 mmol/L (136-145); UREA NITROGEN, BLOOD 7 mg/dL (7-18)
[2021-09-15 19:26] LABS: ALANINE AMINOTRANSFERASE 20 U/L (12-78); ALBUMIN 2.5 g/dL (3.4-5.0); ALKALINE PHOSPHATASE 157 U/L (46-116); ASPARTATE AMINOTRANSFERASE 79 U/L (15-37); BILIRUBIN,DIRECT 0.9 mg/dL (0.0-0.2); LIPASE 293 U/L (73-393); TOTAL PROTEIN, SERUM 7.8 g/dL (6.4-8.2)
--- NOTE | 2021-09-15 20:01 | NUR ---
LACTIC ACID 4.5; VIRAJ MURPHY NOTIFIED
[2021-09-15 20:06] LABS: LYMPHOCYTES % (MANUAL) 19 % (16-48); MONOCYTES % (MANUAL) 5 % (0-11.0); NEUTROPHILS % (MANUAL) 76 (42-76)
[2021-09-15] MEDS ORDERED: CEFTRIAXONE 1GM BAG (ER ONLY) 1 GM/50 ML PIGGYBACK IV ONE (20:30)
[2021-09-16] MEDS ORDERED: ACETAMINOPHEN 325 MG TABLET PO PRN
[2021-09-16] MEDS ORDERED: MAG HYDROX/AL HYDROX/SIMETH 30 ML UDC PO PRN
[2021-09-16] MEDS ORDERED: MAGNESIUM HYDROXIDE 30 ML UDC PO PRN
--- NOTE | 2021-09-16 00:19 | NUR ---
MRSA SWAB COLLECTED AND SENT TO LAB. PATIENT'S BELONGINGS LIST DONE.
[2021-09-16] MEDS ORDERED: ZOSYN IVPB 3.375 G in IV D5W 50ml IV SCH (00:32)
[2021-09-16] MEDS ORDERED: PIPERACILLIN /TAZOBACTAM 3.375 G VIAL IV ONE (00:39)
[2021-09-16] MEDS ORDERED: HYDROMORPHONE INJ 2 MG/ML DISP.SYRIN ONE (00:52)
[2021-09-16] MEDS: HYDROMORPHONE INJ 2 MG/ML DISP.SYRIN IV PRN ×3 (00:58→20:26)
--- NOTE | 2021-09-16 01:01 | NUR ---
PT C/O 10/10 LOWER ABD PAIN. ADM DILAUDID PRN ORDERED. WILL REASSESS FOR PAIN IN 30 MINUTES. PT RESTING IN BED AT THIS TIME. ALL NEEDS MET.
[2021-09-16 05:11] LABS: BASOPHILS % (AUTO) 0.5 % (0.0-2.0); EOSINOPHILS % (AUTO) 0.1 % (0.0-6.0); HEMATOCRIT 45 % (39-51); HEMOGLOBIN 15.6 g/dL (13.5-17.5); LYMPHOCYTES # (AUTO) 0.3 K/uL (0.8-4.8); LYMPHOCYTES % (AUTO) 8.1 % (20.0-44.0); MEAN CORPUSCULAR HGB CONC 35 g/dl (31.0-36.0); MEAN CORPUSCULAR VOLUME 105 fL (80-96); MONOCYTES # (AUTO) 0.4 K/uL (0.1-1.30); NEUTROPHILS # (AUTO) 3.1 K/uL (1.8-8.9); NEUTROPHILS % (AUTO) 81.3 % (43.0-81.0); RED BLOOD CELL COUNT(AUTO) 4.31 MIL/uL (4.5-6.0); WHITE BLOOD COUNT (AUTO) 3.8 K/uL (4.3-11.0)
[2021-09-16 05:31] LABS: PLATELET COUNT (AUTO) 43 K/uL (150-450)
[2021-09-16 05:54] LABS: CALCIUM, SERUM 8.1 mg/dL (8.5-10.1); MAGNESIUM 1.6 mg/dL (1.8-2.4); PHOSPHORUS 4.5 mg/dL (2.5-4.9); POTASSIUM 4.8 mmol/L (3.5-5.1)
[2021-09-16] MEDS ORDERED: PIPERACILLIN /TAZOBACTAM 3.375 G in IV D5W 100 ML IV SCH (09:00)
--- NOTE | 2021-09-16 09:35 | NUR ---
REPORT GIVEN TO SUZI BALTAZAR FOR KEN
--- NOTE | 2021-09-16 10:40 | NUR ---
RN NOTES PATIENT ARRIVED TO UNIT AT ROOM 306-1, ACCOMPANIED BY ER NURSE/CARPENTER WOODEN TANK ERECTING VIA DAVID.
[2021-09-16] MEDS: Magnesium 1GM/D5W 100ML PREMIX 100 ML IV SCH ×2 (10:57→12:17)
[2021-09-16 11:06] LABS: LYMPHOCYTES % (MANUAL) 7 % (16-48); MONOCYTES % (MANUAL) 9 % (0-11.0); NEUTROPHILS % (MANUAL) 84 (42-76)
[2021-09-16] MEDS: ONDANSETRON HCL/PF 4 MG/2 ML VIAL IVP PRN ×2 (11:30→21:21)
[2021-09-16 12:00] VITALS: BP 140/94
--- NOTE | 2021-09-16 12:00 | NUR ---
RN NOTES ADMITTED THIS 61 Y.O. MALE FROM ER W/ COMPLAINT OF WORSENING ABDOMINAL PAIN, PRESENTING W/ NAUSEA/VOMITING, W/ ADMITTING DX OF SEPSIS AND HX OF ALCOHOLIC LIVER CIRRHOSIS AND SMOKING HISTORY. PATIENT IS A/O X4, VERBALLY RESPONSIVE, ABLE TO MAKE NEEDS KNOWN. BREATHING EVEN AND UNLABORED ON AMBIENT AIR, NO RESPIRATORY DISTRESS NOTED. NOTED W/ LFA DISCOLORATION, PHOTO TAKEN AND PLACED IN THE CHART. PATIENT HAS A PERITONEAL CATHETER DRAIN ON RLQ, INTACT AND PATENT, W/ LUER LOCK ACCESS; PATIENT STATED THAT THE DRAIN WAS SURGICALLY PLACED AT [facility] FOR DRAINING PERITONEAL FLUID SECONDARY TO ASCITES. IV LINE ON LAC INTACT AND PATENT. PATIENT HAS MILD-MODERATE WEAKNESS ON BLE AND UNABLE TO AMBULATE AT THIS TIME; ALSO NOTED W/ BASELINE TREMORS ON BOTH HANDS AND PATIENT STATED THAT IT IS NORMAL FOR HIM. ORIENTED TO ROOM AND USE OF CALL LIGHT BUTTON FOR STAFF ASSISTANCE. SAFETY MEASURES IN PLACE: BED ON LOWEST POSITION, BRAKES LOCKED, AND CALL LIGHT W/IN REACH. WILL CONTINUE TO MONITOR.
--- NOTE | 2021-09-16 12:14 | NUR ---
RN NOTES PATIENT SEEN BY DR. MARIN TODAY; OK TO EAT PER MD.
--- NOTE | 2021-09-16 14:10 | NUR ---
RN NOTES OBTAINED PERITONEAL FLUID SPECIMEN FROM PERITONEAL CATHETER FOR GRAM STAIN AND CULTURE PER MD ORDER. SPECIMEN PLACED IN REFRIGERATOR, READY FOR PICKUP.
--- NOTE | 2021-09-16 15:49 | NUR ---
RN NOTES SPOKE W/ LAB AND WAS INFORMED THAT PERITONEAL FLUID ALREADY SENT FOR GRAM STAIN/CULTURE FROM ER; OK TO REMOVE DUPLICATE ORDER.
[2021-09-16 16:00] VITALS: BP 138/92
--- NOTE | 2021-09-16 18:52 | NUR ---
RN NOTES PATIENT RESTING IN BED; CURRENTLY RECEIVING IV ATB, NO ADVERSE REACTION NOTED. NO COMPLAINT OF PAIN AT THIS TIME. USES URINAL AT BEDSIDE. SAFETY MEASURES MAINTAINED. WILL ENDORSE TO AUTOMOTIVE SERVICE TECHNICIAN RN FOR KEN.
--- NOTE | 2021-09-16 19:35 | NUR ---
SOIL SPECIALIST OPENING NOTE PATIENT AWAKE IN BED, ALERT/ORIENTED X 4, PT ABLE TO MAKE NEEDS KNOWN. PATIENT ON EXTERNAL INSPECTOR AND MENDER READING SINUS TACHY, HR: 109. PT STABLE ON RA, NO S/S OF DISTRESS OR SOB NOTED, BREATHING EVEN AND UNLABORED. PATIENT NOTED WITH RLQ INDWELLING PERITONEAL CATHETER. IV ACCESS ON LEFT AC #18G INTACT AND FLUSHING WELL, SALINE LOCKED. SAFETY MEASURES IN PLACE: CALL LIGHT WITHIN REACH, SIDE RAILS UP X 2, BED LOCKED IN LOW POSITION, BED ALARM ON. WILL CONTINUE TO MONITOR PATIENT
[2021-09-16 20:26] VITALS: BP 127/83
--- NOTE | 2021-09-16 20:30 | NUR ---
MOVING CONSULTANT NOTE PATIENT REPORTING 9/10 ABDOMINAL PAIN, DILAUDID 2 MG IV Q4H PRN GIVEN ORDERED. WILL CONTINUE TO MONITOR PATIENT
[2021-09-16] MEDS: CIPROFLOXACIN IV RTU 400 MG in PREMIX 1 EA IV SCH (21:05)
--- NOTE | 2021-09-16 21:25 | NUR ---
CLAIM BENEFIT SPECIALIST NOTE PATIENT REPORTING NAUSEA, ZOFRAN 4 MG IV Q6H GIVEN ORDERED. WILL CONTINUE TO MONITOR PATIENT
[2021-09-17 00:32] VITALS: BP 126/78
[2021-09-17 04:04] VITALS: BP 123/78
[2021-09-17 06:22] LABS: BASOPHILS % (AUTO) 0.2 % (0.0-2.0); EOSINOPHILS % (AUTO) 0.5 % (0.0-6.0); HEMATOCRIT 41 % (39-51); HEMOGLOBIN 13.7 g/dL (13.5-17.5); LYMPHOCYTES # (AUTO) 0.5 K/uL (0.8-4.8); LYMPHOCYTES % (AUTO) 15.4 % (20.0-44.0); MEAN CORPUSCULAR HGB CONC 34 g/dl (31.0-36.0); MEAN CORPUSCULAR VOLUME 105 fL (80-96); MONOCYTES # (AUTO) 0.4 K/uL (0.1-1.30); MONOCYTES % (AUTO) 13.1 % (2.0-12.0); NEUTROPHILS # (AUTO) 2.4 K/uL (1.8-8.9); NEUTROPHILS % (AUTO) 70.8 % (43.0-81.0); RED BLOOD CELL COUNT(AUTO) 3.87 MIL/uL (4.5-6.0); WHITE BLOOD COUNT (AUTO) 3.4 K/uL (4.3-11.0)
[2021-09-17 06:38] LABS: CALCIUM, SERUM 8.5 mg/dL (8.5-10.1); MAGNESIUM 2.1 mg/dL (1.8-2.4); PHOSPHORUS 3.2 mg/dL (2.5-4.9); POTASSIUM 4.4 mmol/L (3.5-5.1)
--- NOTE | 2021-09-17 07:26 | NUR ---
PROJECTOR BOOTH OPERATOR CLOSING NOTE PATIENT AWAKE IN BED, ALERT/ORIENTED X 4, PT ABLE TO MAKE NEEDS KNOWN. PATIENT ON EXTERNAL CLOTH SHRINKING TESTER READING SINUS RHYTHM, HR: 91. PT STABLE ON RA, NO S/S OF DISTRESS OR SOB NOTED, BREATHING EVEN AND UNLABORED. IV ACCESS ON LEFT AC #18G INTACT AND FLUSHING WELL, SALINE LOCKED. MEDICATIONS GIVEN ORDERED, PT NEEDS MET THROUGHOUT SHIFT. SAFETY MEASURES IN PLACE: CALL LIGHT WITHIN REACH, SIDE RAILS UP X 2, BED LOCKED IN LOW POSITION, BED ALARM ON. ENDORSED TO DAY SHIFT NURSE FOR CONTINUITY OF CARE
--- NOTE | 2021-09-17 07:36 | NUR ---
RN OPENING NO0TE- PT ALERT/ORIENTED X 4, PT ABLE TO MAKE NEEDS KNOWN. PATIENT ON EXTERNAL SOCCER REFEREE READING SINUS TACHY, HR: 97. PT STABLE ON RA, NO S/S OF DISTRESS OR SOB NOTED, BREATHING EVEN AND UNLABORED. PATIENT NOTED WITH RLQ INDWELLING PERITONEAL CATHETER. IV ACCESS ON LEFT AC #18G INTACT AND FLUSHING WELL, SALINE LOCKED. SAFETY MEASURES IN PLACE: CALL LIGHT WITHIN REACH, SIDE RAILS UP X 2, BED LOCKED IN LOW POSITION, BED ALARM ON. WILL CONTINUE TO MONITOR PATIENT
[2021-09-17] MEDS: HYDROMORPHONE INJ 2 MG/ML DISP.SYRIN IV PRN ×3 (07:42→20:38)
[2021-09-17 08:00] VITALS: BP 117/71
[2021-09-17 08:01] LABS: PLATELET COUNT (AUTO) 36 K/uL (150-450)
[2021-09-17] MEDS: CIPROFLOXACIN IV RTU 400 MG in PREMIX 1 EA IV SCH (08:57)
[2021-09-17] MEDS: NICOTINE PATCH (21MG) 21 MG PATCH.TD24 TD SCH (10:28)
[2021-09-17 12:00] VITALS: BP 124/75
[2021-09-17] MEDS: CEFTRIAXONE 2 G in IV D5W 100 ML IV SCH (12:39)
[2021-09-17 16:00] VITALS: BP 128/81
--- NOTE | 2021-09-17 18:49 | NUR ---
RN CLOSING NOTE-PATIENT AWAKE IN BED, ALERT/ORIENTED X 4, PT ABLE TO MAKE NEEDS KNOWN. PATIENT ON EXTERNAL PARTS ASSEMBLER READING SINUS RHYTHM, HR: 88. PT STABLE ON RA, NO S/S OF DISTRESS OR SOB NOTED, BREATHING EVEN AND UNLABORED. IV ACCESS ON RT WRIST #20G. MEDICATIONS GIVEN ORDERED, PT NEEDS MET THROUGHOUT SHIFT. SAFETY MEASURES IN PLACE: CALL LIGHT WITHIN REACH, SIDE RAILS UP X 2, BED LOCKED IN LOW POSITION, BED ALARM ON. ENDORSED TO DAY SHIFT NURSE FOR CONTINUITY OF CARE
--- NOTE | 2021-09-17 19:10 | NUR ---
RELAY RECORD CLERK NOTES ST 110 ON TELE MONITOR,ON BED,ON HIGH FOWLERS POSITION,A/O X4,BREATHING EASY,NO SOB,SALINE LOCK LFA INTACT AND PATENT.AMBULATE WITH ASSIST,NOTED TREMORS WHILE GETTING OUT OF BED.PATIENT SAYS HE'S ALWAYS HAD THAT EPISODE, FALL PRECAUTION OBSERVED,BED ON LOWEST POSITION AND LOCKED.CALL LIGHT IN REACH,NEEDS ANTICIPATED.
[2021-09-17 20:00] VITALS: BP 137/72
--- NOTE | 2021-09-17 20:38 | NUR ---
PROFESSOR OF ARCHAEOLOGY NOTES C/O ABDOMINAL PAIN 8/10 ON PAIN SCALE,DILAUDID 2MG IV GIVEN ORDERED FOR SEVERE PAIN.
[2021-09-18] VITALS: BP 125/78
--- NOTE | 2021-09-18 01:00 | NUR ---
ELECTRONIC INDUCTION HARDENER NOTES SLEEPING THIS TIME
[2021-09-18 04:00] VITALS: BP 130/75
[2021-09-18 06:12] LABS: BASOPHILS % (AUTO) 0.4 % (0.0-2.0); EOSINOPHILS % (AUTO) 1.7 % (0.0-6.0); HEMATOCRIT 40 % (39-51); HEMOGLOBIN 13.7 g/dL (13.5-17.5); LYMPHOCYTES # (AUTO) 0.7 K/uL (0.8-4.8); LYMPHOCYTES % (AUTO) 21.6 % (20.0-44.0); MEAN CORPUSCULAR HGB CONC 34 g/dl (31.0-36.0); MEAN CORPUSCULAR VOLUME 104 fL (80-96); MONOCYTES # (AUTO) 0.4 K/uL (0.1-1.30); MONOCYTES % (AUTO) 11.1 % (2.0-12.0); NEUTROPHILS # (AUTO) 2.1 K/uL (1.8-8.9); NEUTROPHILS % (AUTO) 65.2 % (43.0-81.0); RED BLOOD CELL COUNT(AUTO) 3.86 MIL/uL (4.5-6.0); WHITE BLOOD COUNT (AUTO) 3.3 K/uL (4.3-11.0)
--- NOTE | 2021-09-18 06:30 | NUR ---
BEHAVIORAL HEALTH ASSISTANT NOTES ABDOMINAL PAIN IMPROVED,SLEPT WELL AT NIGHT,NO FALL,NO INJURY,IN NO ACUTE DISTRESS.WILL ENDORSE TO DAY NURSE FOR KEN.
[2021-09-18 06:33] LABS: CALCIUM, SERUM 8.5 mg/dL (8.5-10.1); CREATININE 0.9 mg/dL (0.6-1.3); MAGNESIUM 1.8 mg/dL (1.8-2.4); PHOSPHORUS 3.2 mg/dL (2.5-4.9); POTASSIUM 4.1 mmol/L (3.5-5.1)
[2021-09-18 06:40] LABS: PLATELET COUNT (AUTO) 40 K/uL (150-450)
[2021-09-18 08:00] VITALS: BP 117/78
--- NOTE | 2021-09-18 08:00 | NUR ---
RN Note Patient received AO x 4, able to responds all stimuli. denies pain or any discomfort. Respiratory even and unlabored on room air. Skin is warm to touch keep clean/dry. Call light within reach, will continue to monitor.
[2021-09-18] MEDS: NICOTINE PATCH (21MG) 21 MG PATCH.TD24 TD SCH (08:29)
[2021-09-18 12:00] VITALS: BP 122/66
[2021-09-18] MEDS: CEFTRIAXONE 2 G in IV D5W 100 ML IV SCH (12:13)
[2021-09-18 16:00] VITALS: BP 145/77
--- NOTE | 2021-09-18 18:00 | NUR ---
RN Closing Note Patient resting in bed, remains AO x 4. Respiratory even and unlabored on room air. Denies pain or discomfort. Skin is warm to touch, keep clean/dry, intact new midline on right upper arm. Kept elevated HOB for ensure airway and lower position of the bed for safety. Call light within reach, all needs met. will endorse mini shifter.
--- NOTE | 2021-09-18 19:25 | NUR ---
MS RN OPENING NOTE PATIENT RECEIVED AWAKE IN BED WATCHING TV. PATIENT APPEARS PLEASANT. A/OX4. NO S/S OF DISTRESS, BREATHING SYMMETRICAL. SENIOR CONSTRUCTION PROJECT MANAGER REPORTS [address] (PATIENT IS OFFICALLY MEDSURG, BUT HEART RATE IS CURRENTLY BEING CLOSELY MONITORED). SAFETY MEASURES IN PLACE: BED AT LOWEST POSITION, RAILS UP X2, CALL GUTIERREZ WITHIN REACH. WILL CONTINUE TO MONITOR PATIENT.
[2021-09-18] MEDS: HYDROMORPHONE INJ 2 MG/ML DISP.SYRIN IV PRN (19:47)
[2021-09-19] MEDS: AMPICILLIN 1 GM in IV NS 0.9% 50 ML IV SCH ×5 (01:02→17:11)
--- NOTE | 2021-09-19 06:18 | NUR ---
MS CLOSING NOTE PATIENT AWAKE IN BED. A/OX4. NO S/S OF DISTRESS; BREATHING SYMMETRICAL. SAFETY MEASURES IN PLACE: BED AT LOWEST POSITION, RAILS UP X2, CALL GUTIERREZ WITHIN REACH. WILL ENDORSE TO NEXT SHIFT FOR KEN.
[2021-09-19 07:24] LABS: BASOPHILS % (AUTO) 0.4 % (0.0-2.0); EOSINOPHILS % (AUTO) 1.4 % (0.0-6.0); HEMATOCRIT 40 % (39-51); HEMOGLOBIN 13.6 g/dL (13.5-17.5); LYMPHOCYTES # (AUTO) 0.6 K/uL (0.8-4.8); LYMPHOCYTES % (AUTO) 27.2 % (20.0-44.0); MEAN CORPUSCULAR HGB CONC 34 g/dl (31.0-36.0); MEAN CORPUSCULAR VOLUME 105 fL (80-96); MONOCYTES # (AUTO) 0.3 K/uL (0.1-1.30); MONOCYTES % (AUTO) 14.3 % (2.0-12.0); NEUTROPHILS # (AUTO) 1.3 K/uL (1.8-8.9); NEUTROPHILS % (AUTO) 56.7 % (43.0-81.0); WHITE BLOOD COUNT (AUTO) 2.3 K/uL (4.3-11.0)
--- NOTE | 2021-09-19 07:30 | NUR ---
MS RN OPENING NOTE RECEIVED PATIENT AWAKE ON BED AND A/O X4. ON ROOM AIR TOLERATING WELL. NO SOB NOTED. NOT IN DISTRESS. WITH NO COMPLAINTS OF PAIN OR DISCOMFORT AT THIS TIME. WITH IV ACCESS AT RIGHT UPPER ARM MIDLINE AND AT LEFT WRIST G20, SALINE LOCKED, INTACT AND PATENT. SAFETY MEASURES IN PLACED. CALL LIGHT WITHIN REACH. BED ON LOWEST LOCKED POSITION, SIDE RAILS UP X2. WILL CONTINUE TO MONITOR.
[2021-09-19 07:38] LABS: PLATELET COUNT (AUTO) 40 K/uL (150-450)
[2021-09-19 08:13] VITALS: BP 106/70
[2021-09-19] MEDS: NICOTINE PATCH (21MG) 21 MG PATCH.TD24 TD SCH (08:33)
[2021-09-19 10:29] LABS: CALCIUM, SERUM 7.9 mg/dL (8.5-10.1); CREATININE 0.8 mg/dL (0.6-1.3); MAGNESIUM 1.8 mg/dL (1.8-2.4); PHOSPHORUS 3.5 mg/dL (2.5-4.9); POTASSIUM 3.8 mmol/L (3.5-5.1)
[2021-09-19] MEDS: HYDROMORPHONE INJ 2 MG/ML DISP.SYRIN IV PRN ×2 (10:39→16:17)
[2021-09-19 12:36] LABS: EOSINOPHILS % (MANUAL) 2 % (0-4); LYMPHOCYTES % (MANUAL) 25 % (16-48); MONOCYTES % (MANUAL) 11 % (0-11.0); NEUTROPHILS % (MANUAL) 62 (42-76)
[2021-09-19 13:51] LABS: IRON, SERUM 30 ug/dl (50-175); TOTAL IRON BINDING CAPACITY 154 ug/dl (250-450)
[2021-09-19 14:04] LABS: FERRITIN 298 ng/mL (8-388)
[2021-09-19 14:11] LABS: D-DIMER 6.32 mg/L(FEU (0.17-0.50)
[2021-09-19 15:41] VITALS: BP 102/69
[2021-09-19] MEDS ORDERED: POLYVINYL ALCOHOL 15 ML BOTTLE EACHEYE PRN (18:00)
--- NOTE | 2021-09-19 18:35 | NUR ---
MS RN CLOSING NOTE PATIENT AWAKE ON BED WATCHING TV AND A/O X4. ON ROOM AIR TOLERATING WELL. NO SOB NOTED. NOT IN DISTRESS. WITH NO COMPLAINTS OF PAIN OR DISCOMFORT AT THIS TIME. WITH IV ACCESS AT RIGHT UPPER ARM MIDLINE AND AT LEFT WRIST G20, SALINE LOCKED, INTACT AND PATENT. DUE MEDS GIVEN. SAFETY MEASURES IN PLACED. CALL LIGHT WITHIN REACH. BED ON LOWEST LOCKED POSITION, SIDE RAILS UP X2. WILL ENDORSE TO NEXT SHIFT FOR KEN.
--- NOTE | 2021-09-19 19:36 | NUR ---
MS RN OPENING NOTES: RECEIVED PATIENT AWAKE IN BED, BED IN LOW POSITION, CALL LIGHTS WITHIN REACH, NO COMPLAIN OF PAIN AND DISCOMFORT AT THIS TIME, PATIENT IS A/O X4 ABLE SHIRA KQAE NEEDS KNOWN, WITH PIGTAIL CATHETER ON RIGHT LOWER ABDOMEN, NO BLEEDING WAS OBSERVED, FOR REMOVAL TOMORROW, WITH RAUL MIDLINE , LW#20, PATIENT KEPT CLEAN AND DRY ALL NEEDS MET, WILL CONTINUE TO MONITOR.
[2021-09-19 20:00] VITALS: BP 115/78
[2021-09-20] MEDS: AMPICILLIN 1 GM in IV NS 0.9% 50 ML IV SCH ×4 (00:47→17:20)
[2021-09-20] MEDS: HYDROMORPHONE INJ 2 MG/ML DISP.SYRIN IV PRN ×2 (00:47→22:19)
[2021-09-20 06:38] LABS: BASOPHILS % (AUTO) 0.5 % (0.0-2.0); EOSINOPHILS % (AUTO) 2.9 % (0.0-6.0); HEMATOCRIT 40 % (39-51); HEMOGLOBIN 13.6 g/dL (13.5-17.5); LYMPHOCYTES # (AUTO) 0.6 K/uL (0.8-4.8); LYMPHOCYTES % (AUTO) 24.1 % (20.0-44.0); MEAN CORPUSCULAR HGB CONC 34 g/dl (31.0-36.0); MEAN CORPUSCULAR VOLUME 105 fL (80-96); MONOCYTES # (AUTO) 0.4 K/uL (0.1-1.30); MONOCYTES % (AUTO) 15.8 % (2.0-12.0); NEUTROPHILS # (AUTO) 1.4 K/uL (1.8-8.9); NEUTROPHILS % (AUTO) 56.7 % (43.0-81.0); PLATELET COUNT (AUTO) 52 K/uL (150-450); RED BLOOD CELL COUNT(AUTO) 3.82 MIL/uL (4.5-6.0); WHITE BLOOD COUNT (AUTO) 2.4 K/uL (4.3-11.0)
[2021-09-20 06:50] LABS: CALCIUM, SERUM 7.6 mg/dL (8.5-10.1); CREATININE 0.9 mg/dL (0.6-1.3); MAGNESIUM 1.6 mg/dL (1.8-2.4); PHOSPHORUS 3.7 mg/dL (2.5-4.9); POTASSIUM 3.8 mmol/L (3.5-5.1)
--- NOTE | 2021-09-20 06:51 | NUR ---
RN CLOSING NOTES: PATIENT SLEEP IN BED COMFORTABLY, AROUSABLE TO VERBAL STIMULI, BED IN LOW POSITION, CALL LIGHTS WITHIN REACH, NO COMPLAIN OF PAIN AND DISCOMFORT AT THIS TIME, WITH IV LINE AT RT. ML AND LW#20 PATIENT IDS NPO DUE TO REMOVAL F PERITONEAL DIALYSIS CATHETER,, PATIENT KEPT CLEAN AND DRY, ALL NEED MET, ENDORSE TO INCOMING SHIFT.
--- NOTE | 2021-09-20 07:31 | NUR ---
MS RN OPENING NOTES: RECEIVED PATIENT AWAKE IN BED. NO COMPLAIN OF PAIN AND DISCOMFORT AT THIS TIME,NO SOB NO RESPIRATORY DISTRESS NOTED. PATIENT IS A/O X4 ABLE TO MAKE NEEDS KNOWN. WITH CATHETER ON RIGHT LOWER ABDOMEN, NO BLEEDING NOTED, NPO. WITH RAUL MIDLINE , LW#20, PATIENT KEPT CLEAN AND DRY ALL NEEDS MET, BED IN THE LOWEST POSITION AND LOCKED. CALL LIGHT AND TABLE WITHIN REACH. WILL CONTINUE TO MONITOR.
[2021-09-20 08:00] VITALS: BP 99/53
[2021-09-20 08:06] LABS: IMMUNOGLOBULIN A, SERUM 480 mg/dL (61-437); IMMUNOGLOBULIN G, SERUM 1727 mg/dL (603-1613); IMMUNOGLOBULIN M, SERUM 158 mg/dL (20-172)
[2021-09-20] MEDS: NICOTINE PATCH (21MG) 21 MG PATCH.TD24 TD SCH (08:23)
[2021-09-20] MEDS: FERROUS SULFATE (325 MG) 325 MG/TAB TABLET PO SCH (10:00)
--- NOTE | 2021-09-20 10:57 | NUR ---
RN NOTES PATIENT LEFT FOR SURGERY AT 1057AM.
[2021-09-20] MEDS ORDERED: ROCURONIUM BROMIDE 50 MG/5 ML ONE (10:59)
[2021-09-20] MEDS ORDERED: SUCCINYLCHOLINE CHLORIDE 20 MG/ML VIAL ONE (10:59)
[2021-09-20] MEDS ORDERED: BUPIVACAINE 0.5 % PF 150 MG/30 ML VIAL ONE (11:28)
[2021-09-20] MEDS ORDERED: BUPIVACAINE MPF W/EPI 0.25% 30 ML VIAL ONE (11:28)
--- NOTE | 2021-09-20 12:33 | NUR ---
RN NOTES PATIENT CAME BACK FROM SURGERY AT 1233 PM. VITAL SIGNS NORMAL, NN=[id number]/74, P=98, T=98.3, O2=99%
[2021-09-20] MEDS: Magnesium 1GM/D5W 100ML PREMIX 100 ML IV SCH ×2 (13:46→15:04)
[2021-09-20] MEDS ORDERED: Magnesium 1GM/D5W 100ML PREMIX 100 ML IV ONE (15:04)
--- NOTE | 2021-09-20 18:30 | NUR ---
MS RN OPENING NOTES: PATIENT AWAKE IN BED. NO COMPLAIN OF PAIN AND DISCOMFORT AT THIS TIME,NO SOB NO RESPIRATORY DISTRESS NOTED. PATIENT IS A/O X4 ABLE TO MAKE NEEDS KNOWN. S/P OF CATHETER REMOVAL ON RIGHT LOWER ABDOMEN, NO BLEEDING NOTED. WITH RAUL MIDLINE . PATIENT KEPT CLEAN AND DRY ALL NEEDS MET,ALL DUE MEDS GIVEN ORDERED. BED IN THE LOWEST POSITION AND LOCKED. CALL LIGHT AND TABLE WITHIN REACH. WILL CONTINUE TO MONITOR.
[2021-09-20 20:00] VITALS: BP 99/64
[2021-09-20 21:27] LABS: EOSINOPHILS % (MANUAL) 1 % (0-4); LYMPHOCYTES % (MANUAL) 25 % (16-48); MONOCYTES % (MANUAL) 9 % (0-11.0); NEUTROPHILS % (MANUAL) 65 (42-76)
[2021-09-21] MEDS: AMPICILLIN 1 GM in IV NS 0.9% 50 ML IV SCH ×3 (00:30→12:06)
--- NOTE | 2021-09-21 06:46 | NUR ---
MS RN NOTES AWAKE & RESPONSIVE. NOT IN ANY DISTRESS. NO SOB NOTED. DENIES ANY PAIN OR DISCOMFORT AT THIS TIME. WITH IVF INFUSING WELL. MONITORED ACCORDINGLY. CALL LIGHT WITHIN REACH. BED IN LOWEST POSITION. SR UP X 2 FOR SAFETY. WILL ENDORSE TO NEXT SHIFT.
--- NOTE | 2021-09-21 07:30 | NUR ---
MS RN OPENING NOTES: RECEIVED PATIENT AWAKE IN BED. NO COMPLAIN OF PAIN AND DISCOMFORT AT THIS TIME,NO SOB NO RESPIRATORY DISTRESS NOTED. PATIENT IS A/O X4 ABLE TO MAKE NEEDS KNOWN. S/P OF RIGHT LOWER CATHETER REMOVAL. WITH RAUL MIDLINE .KEPT CLEAN AND DRY ALL NEEDS MET, BED IN THE LOWEST POSITION AND LOCKED. CALL LIGHT AND TABLE WITHIN REACH. WILL CONTINUE TO MONITOR.
[2021-09-21 08:00] VITALS: BP 99/72
[2021-09-21 08:22] LABS: CALCIUM, SERUM 8.1 mg/dL (8.5-10.1); CREATININE 0.8 mg/dL (0.6-1.3); MAGNESIUM 2.3 mg/dL (1.8-2.4); POTASSIUM 3.9 mmol/L (3.5-5.1)
[2021-09-21] MEDS: FERROUS SULFATE (325 MG) 325 MG/TAB TABLET PO SCH (08:22)
[2021-09-21] MEDS: NICOTINE PATCH (21MG) 21 MG PATCH.TD24 TD SCH (08:22)
[2021-09-21] MEDS: HYDROMORPHONE INJ 2 MG/ML DISP.SYRIN IV PRN (10:33)
--- NOTE | 2021-09-21 14:04 | NUR ---
NET UI DEVELOPER NOTES DISCHARGE PATIENT IN STABLE CONDITION. INSTRUCTIONS GIVEN TO THE PATIENT. SON PICKED THE PATIENT.ALL BELONGINGS SIGNED FOR. VITAL SIGNS WITHIN NORMAL RANGES. KEPT MID LINE FOR HOME HEALTH MEDICATION ADMINISTRATION. WHEELED THE PATIENT TO THE LOBBY.PATIENT LEFT HOSPITAL IN STABLE CONDITION.
[2021-09-22 07:06] LABS: *SPE A/G RATIO 0.6 (0.7-1.7); *SPE ALPHA-1-GLOBULIN 0.4 g/dL (0.0-0.4); *SPE ALPHA-2-GLOBULIN 0.6 g/dL (0.4-1.0); *SPE M-SPIKE Not Observed g/dL (Not Observed)
[2021-09-22 11:06] LABS: *ANA ANTI-CENTROMERE B AB <0.2 AI (0.0-0.9); *ANA ANTI-DNA(DS) AB, QN <1 IU/mL (0-9); *ANA ANTI-JO-1 <0.2 AI (0.0-0.9); *ANA ANTICHROMATIN ANTIBODY <0.2 AI (0.0-0.9); *ANA RNP ANTIBODIES <0.2 AI (0.0-0.9); *ANA SJOGREN'S ANTI-SS-A <0.2 AI (0.0-0.9); *ANA SJOGREN'S ANTI-SS-B <0.2 AI (0.0-0.9); *ANAANTI-SCLERODERMA-70 AB <0.2 AI (0.0-0.9); *ANASMITH AB <0.2 AI (0.0-0.9)
== END 2021-09-21 14:00 | disposition home health service (06) | DRG 711 ==
LOC: ER 16:13 → TRANSITION 23:45 → TELE 09-16 07:57 → MED 09-16 09:42 → TELE 09-16 17:41 → MED 09-18 11:37
PROVIDERS: ADMIT Nurse Practitioner Acute Care; ATTEND Student in an Organized Health Care Education/Training Program
PROC: 0DP Gastrointestinal System, Removal (ICD-10-PCS; principal; 2021-09-20)
DX: T85.79XA Infection and inflammatory reaction due to other internal prosthetic devices, implants and grafts, initial encounter (principal); A41.9 Sepsis, unspecified organism; D61.818 Other pancytopenia; K65.2 Spontaneous bacterial peritonitis; D68.8 Other specified coagulation defects; E44.0 Moderate protein-calorie malnutrition; E87.2 Acidosis; E87.1 Hypo-osmolality and hyponatremia; I85.10 Secondary esophageal varices without bleeding; E88.09 Other disorders of plasma-protein metabolism, not elsewhere classified; K70.31 Alcoholic cirrhosis of liver with ascites; D53.9 Nutritional anemia, unspecified; D69.59 Other secondary thrombocytopenia; E66.9 Obesity, unspecified; E83.42 Hypomagnesemia; E87.6 Hypokalemia; R16.1 Splenomegaly, not elsewhere classified; E80.6 Other disorders of bilirubin metabolism; Z68.31 Body mass index [BMI] 31.0-31.9, adult; Z20.822 Contact with and (suspected) exposure to COVID-19; B95.2 Enterococcus as the cause of diseases classified elsewhere; D72.819 Decreased white blood cell count, unspecified; K76.6 Portal hypertension; Y83.8 Other surgical procedures as the cause of abnormal reaction of the patient, or of later complication, without mention of misadventure at the time of the procedure; Y92.009 Unspecified place in unspecified non-institutional (private) residence as the place of occurrence of the external cause; F10.21 Alcohol dependence, in remission; Z87.891 Personal history of nicotine dependence
CPT/HCPCS: 36415; 71045-TC; 80048-TC; 80061-TC; 80076-TC; 82728-TC; 82784; 83540-TC; 83605-TC; 83690-TC; 83735-TC; 84100-TC; 84155; 84165; 84484-TC; 85025-TC; 85396; 85730-TC; 86225; 86235; 86334; 86431-TC; 86706; 86803; 87040-TC; 87070-TC; 87075-TC; 87081-TC; 87186-TC; 87340; 89051-TC; 97116-TC; 97530-TC; A4216; C9803; G0378; J0290; J0330; J0690; J0696; J0744; J1100; J1170; J2405; J2543; J2704; J3475; J3490; J7030; J7040; J7050; J7060; Q9967

== ENCOUNTER 2021-11-04 19:49 | Emergency (ER) | payer OTHER ==
[~2021-11-04] VITALS: Ht 180.3 cm; Wt 104.3 kg
[2021-11-04 20:09] VITALS: BP 154/88
--- NOTE | 2021-11-04 20:12 | NUR ---
PT BIBSELF C/O HIP PAIN THAT RADIATES DOWN LEG TO FOOT X 4 DAYS. PT AAOX4 BREATHING EVENLY AND UNLABORED. PT GIVEN BLANKET AND CALL LIGHT WITHIN REACH. WILL CONTINUE TO MONITOR.
[2021-11-04] MEDS ORDERED: KETOROLAC TROMETHAMINE INJ 30 MG/ML VIAL ONE (20:29)
[2021-11-04] MEDS ORDERED: CYCLOBENZAPRINE 10 MG TABLET ONE (20:29)
[2021-11-04] MEDS ORDERED: KETOROLAC TROMETHAMINE INJ 30 MG/ML VIAL IM ONE (20:30)
[2021-11-04] MEDS ORDERED: CYCLOBENZAPRINE 10 MG TABLET PO ONE (20:30)
[2021-11-04] MEDS ORDERED: HYDROCODONE/APAP 5/325MG TABLET PO ONE (21:00)
[2021-11-04] MEDS ORDERED: HYDROCODONE/APAP 5/325MG TABLET ONE (21:08)
[2021-11-04] MEDS ORDERED: HYDR-4209 PO (21:37)
[2021-11-04] MEDS ORDERED: IBUP-1957 PO (21:37)
[2021-11-04] MEDS ORDERED: CYCL5TAB PO (21:37)
--- NOTE | 2021-11-04 21:41 | NUR ---
EMT AT BED SIDE TO PROVIDE PT W/ A PAIR OF CRUTCHES
--- NOTE | 2021-11-04 21:49 | NUR ---
Patient discharged to home in stable condition. Written and verbal after care instructions given. Patient verbalizes understanding of instruction.
== END 2021-11-04 21:49 | disposition home or self-care (01) ==
LOC: ER 19:49
DX: G89.29 Other chronic pain (principal); M54.50 Low back pain, unspecified; Z98.890 Other specified postprocedural states; Z79.899 Other long term (current) drug therapy
CPT/HCPCS: 96372; 99283; J1885

== ENCOUNTER 2021-12-21 01:15 | Emergency (ER) | payer OTHER ==
[~2021-12-21] VITALS: Ht 175.3 cm; Wt 99.8 kg
[~2021-12-21 01:15] MED LIST: CYCL5TAB PO; HYDR-4209 PO; IBUP-1957 PO
--- NOTE | 2021-12-21 02:02 | NUR ---
BIBFRIENDS TO ER BED 13. INTOXICATED, ADMITS TO DRINKING. NOT IN DISTRESS. BROUGHT IN FOR ALCOHOL INTOXICATION, DEPRESSIONA AND VERBALIZATION THAT HE WANTS TO . PT IS SEEKING VOLUNTARY TREATMENT. WAS AT THE BEDSIDE FOR EVAL. PT IS GOWNED, BELONGINGS IN LOCKER AND SITTER WITHIN SIGHT.
[2021-12-21] MEDS ORDERED: LORAZEPAM 1 MG TABLET PO ONE ×2 (02:30→16:30)
[2021-12-21 02:32] LABS: BASOPHILS % (AUTO) 0.7 % (0.0-2.0); EOSINOPHILS % (AUTO) 4.9 % (0.0-6.0); HEMATOCRIT 45 % (39-51); LYMPHOCYTES # (AUTO) 1.4 K/uL (0.8-4.8); LYMPHOCYTES % (AUTO) 31.4 % (20.0-44.0); MEAN CORPUSCULAR HGB CONC 33 g/dl (31.0-36.0); MEAN CORPUSCULAR VOLUME 101 fL (80-96); MONOCYTES # (AUTO) 0.4 K/uL (0.1-1.30); MONOCYTES % (AUTO) 9.4 % (2.0-12.0); NEUTROPHILS # (AUTO) 2.4 K/uL (1.8-8.9); NEUTROPHILS % (AUTO) 53.6 % (43.0-81.0); PLATELET COUNT (AUTO) 73 K/uL (150-450); RED BLOOD CELL COUNT(AUTO) 4.49 MIL/uL (4.5-6.0); WHITE BLOOD COUNT (AUTO) 4.4 K/uL (4.3-11.0)
[2021-12-21 02:35] LABS: ALANINE AMINOTRANSFERASE 34 U/L (12-78); ALBUMIN 2.6 g/dL (3.4-5.0); ALCOHOL, BLOOD 282 mg/dL (0-0); ALKALINE PHOSPHATASE 216 U/L (46-116); ASPARTATE AMINOTRANSFERASE 122 U/L (15-37); BILIRUBIN,DIRECT 0.5 mg/dL (0.0-0.2); CALCIUM, SERUM 7.8 mg/dL (8.5-10.1); CARBON DIOXIDE 24 mmol/L (21-32); CHLORIDE 107 mmol/L (98-107); CREATININE 0.7 mg/dL (0.6-1.3); GLUCOSE 104 mg/dL (74-106); POTASSIUM 3.6 mmol/L (3.5-5.1); SODIUM SERUM 141 mmol/L (136-145); TOTAL PROTEIN, SERUM 6.8 g/dL (6.4-8.2); UREA NITROGEN, BLOOD 4 mg/dL (7-18)
[2021-12-21 02:41] LABS: ACETAMINOPHEN 0 ug/ml (10-30)
[2021-12-21] MEDS ORDERED: LORAZEPAM 1 MG TABLET ONE ×2 (02:48→16:08)
--- NOTE | 2021-12-21 06:00 | NUR ---
PT I BE SLEEPING, ARROUSABLE, STILL VERBALIZES THAT HE IS FEELING DESPRESSED
--- NOTE | 2021-12-21 07:23 | NUR ---
PATIENT ASLEEP, EASILY AROUSABLE, BREATHING EVEN AND NON LABORED
[2021-12-21 07:29] LABS: NEUTROPHILS % (MANUAL) 53 (42-76)
[2021-12-21 07:30] LABS: EOSINOPHILS % (MANUAL) 8 % (0-4); LYMPHOCYTES % (MANUAL) 37 % (16-48); MONOCYTES % (MANUAL) 2 % (0-11.0)
--- NOTE | 2021-12-21 15:32 | NUR ---
clinicals faxed to [facility]
--- NOTE | 2021-12-22 01:34 | NUR ---
URINE SPECIMEN COLLECTED AND SENT TO LAB.
[2021-12-22 02:38] LABS: BILIRUBIN,URINE NEGATIVE (NEGATIVE); COLOR,URINE YELLOW (YELLOW); LEUKOCYTE ESTERASE ,URINE NEGATIVE (NEGATIVE); NITRITE, URINE NEGATIVE (NEGATIVE); PROTEIN,URINE NEGATIVE (NEGATIVE); UGLUCOSE NEGATIVE (NEGATIVE); UROBILINOGEN,URINE 0.2 EU/dL (0.2)
--- NOTE | 2021-12-22 03:30 | NUR ---
RE-FAXED CLONICALS TO [facility]
--- NOTE | 2021-12-22 08:13 | NUR ---
spoke with [facility],intake, waiting on [facility] to accept , [facility] is does not want to accept due to platelet of 73
--- NOTE | 2021-12-22 10:26 | NUR ---
Followed-up with Shana Carcamo, still reviewing pt.'s clinicals.
--- NOTE | 2021-12-22 11:12 | NUR ---
SO MARICARMEN FAY CALLED WITH ACCEPTANCE INFO TO [facility] UNDER THE CARE OF DR. LEVI NUMBER FOR REPORT [phone] EXT [phone] CALLING [facility] FOR TRANSPORT
--- NOTE | 2021-12-22 11:14 | NUR ---
ROOM 634B IN [place]
--- NOTE | 2021-12-22 11:14 | NUR ---
CALLED [facility] FOR S TRANSPORT ETA [phone]
[2021-12-22 11:26] VITALS: BP 135/81
--- NOTE | 2021-12-22 11:27 | NUR ---
Patient discharged to home in stable condition. Written and verbal after care instructions given. Patient verbalizes understanding of instruction. Denies SI/HI.
== END 2021-12-22 11:26 | disposition home or self-care (01) ==
LOC: ER 01:24
DX: F10.129 Alcohol abuse with intoxication, unspecified (principal); Y90.8 Blood alcohol level of 240 mg/100 ml or more; K74.60 Unspecified cirrhosis of liver; Z20.822 Contact with and (suspected) exposure to COVID-19
CPT/HCPCS: 36415; 80048; 80076; 80143; 80307; 80320; 81003; 85007; 85025; 87426; 99285; C9803; G0480

== ENCOUNTER 2022-01-12 14:00 | Emergency (ER) | payer OTHER ==
[~2022-01-12] VITALS: Ht 175.3 cm; Wt 105.7 kg
[2022-01-12 15:08] LABS: BASOPHILS % (AUTO) 0.3 % (0.0-2.0); EOSINOPHILS % (AUTO) 3.5 % (0.0-6.0); HEMATOCRIT 39 % (39-51); HEMOGLOBIN 13.3 g/dL (13.5-17.5); LYMPHOCYTES # (AUTO) 0.5 K/uL (0.8-4.8); LYMPHOCYTES % (AUTO) 19.2 % (20.0-44.0); MEAN CORPUSCULAR HGB CONC 34 g/dl (31.0-36.0); MEAN CORPUSCULAR VOLUME 101 fL (80-96); MONOCYTES # (AUTO) 0.3 K/uL (0.1-1.30); NEUTROPHILS # (AUTO) 1.6 K/uL (1.8-8.9); RED BLOOD CELL COUNT(AUTO) 3.89 MIL/uL (4.5-6.0); WHITE BLOOD COUNT (AUTO) 2.6 K/uL (4.3-11.0)
[2022-01-12 15:09] LABS: BILIRUBIN,URINE NEGATIVE (NEGATIVE); COLOR,URINE YELLOW (YELLOW); LEUKOCYTE ESTERASE ,URINE NEGATIVE (NEGATIVE); NITRITE, URINE NEGATIVE (NEGATIVE); PH,URINE 7.5 (5.0-8.0); PROTEIN,URINE NEGATIVE (NEGATIVE); UGLUCOSE NEGATIVE (NEGATIVE)
[2022-01-12 15:20] LABS: PLATELET COUNT (AUTO) 97 K/uL (150-450)
[2022-01-12 15:27] LABS: CALCIUM, SERUM 8.2 mg/dL (8.5-10.1); CREATININE 0.9 mg/dL (0.6-1.3); POTASSIUM 4.1 mmol/L (3.5-5.1)
[2022-01-12] MEDS ORDERED: TAMS-12 PO (15:57)
[2022-01-12 16:13] VITALS: BP 136/78
== END 2022-01-12 16:14 | disposition home or self-care (01) ==
LOC: ER 14:04
DX: R33.9 Retention of urine, unspecified (principal); Z87.19 Personal history of other diseases of the digestive system; Z79.899 Other long term (current) drug therapy
CPT/HCPCS: 36415; 80048-TC; 85025-TC; 87086-TC

== ENCOUNTER 2022-02-06 10:08 | Emergency (ER) | payer OTHER ==
[~2022-02-06] VITALS: Ht 175.3 cm; Wt 99.8 kg
[~2022-02-06 10:08] MED LIST changes: +TAMS-12 PO
--- NOTE | 2022-02-06 10:49 | NUR ---
PT BIBS WITH C/O OF ABDOMINAL PAIN X6 DAYS. PT STATES 6/10 CONSTANT DULL PAIN IN LOWER ABDOMEN THAT RADIATES TO SPLEEN AND LEFT LEG. PT HAS DIFFICULTY URINATING, DENIES FEVER, CHILLS, H/A OR N/V. PT IS A&OX4, NAD, VSS, RESPIRATION EVEN AND UNLABORED. NO PMH. CURRENTLY SITTING IN BED AWAKE AND ALERT. 20G IV PLACED ON RIGHT AC, BLOOD DRAWN AND SENT TO LAB. PENDING MD SANCHEZ.
[2022-02-06 10:53] LABS: BASOPHILS % (AUTO) 0.6 % (0.0-2.0); EOSINOPHILS % (AUTO) 5.4 % (0.0-6.0); HEMATOCRIT 42 % (39-51); HEMOGLOBIN 14.2 g/dL (13.5-17.5); LYMPHOCYTES # (AUTO) 0.6 K/uL (0.8-4.8); LYMPHOCYTES % (AUTO) 20.8 % (20.0-44.0); MEAN CORPUSCULAR HGB CONC 34 g/dl (31.0-36.0); MEAN CORPUSCULAR VOLUME 98 fL (80-96); MONOCYTES # (AUTO) 0.2 K/uL (0.1-1.30); MONOCYTES % (AUTO) 7.5 % (2.0-12.0); NEUTROPHILS % (AUTO) 65.7 % (43.0-81.0); PLATELET COUNT (AUTO) 68 K/uL (150-450); RED BLOOD CELL COUNT(AUTO) 4.28 MIL/uL (4.5-6.0)
[2022-02-06 11:07] LABS: ALBUMIN 3.4 g/dL (3.4-5.0); BILIRUBIN,DIRECT 0.4 mg/dL (0.0-0.2); BILIRUBIN,TOTAL 0.9 mg/dL (0.2-1.0); CALCIUM, SERUM 8.5 mg/dL (8.5-10.1); POTASSIUM 4.2 mmol/L (3.5-5.1); TOTAL PROTEIN, SERUM 7.6 g/dL (6.4-8.2)
[2022-02-06] MEDS ORDERED: TAMS-12 PO (11:09)
[2022-02-06] MEDS ORDERED: QUET100T PO (11:09)
[2022-02-06] MEDS ORDERED: FINA5TAB11 PO (11:09)
--- NOTE | 2022-02-06 12:00 | NUR ---
PT WAS INFORMED THE RISKS AND BENEFITS OF A ULTRASOUND GUIDED PARACENTESIS. PT AGREED TO HAVE PROCEDURE DONE. CONSENT FORM WITHIN PT'S CHART.
--- NOTE | 2022-02-06 12:29 | NUR ---
ULTRASOUND AT BEDSIDE
--- NOTE | 2022-02-06 13:35 | NUR ---
PT MEDICALLY CLEARED FOR DC BY . DC INSTRUCTIONS PROVIDED, INSTRUCTED PT TO FOLLOW UP WITH PCP WITHIN 2-3 DAYS, PT VERBALIZED UNDERSTANDING. PT IS A&OX4, NAD, VSS, RESPIRATION EVEN AND UNLABORED. PT WALKED OUT OF ED WITH STEADY GAIT ALONG WITH ALL PERSONAL BELONGINGS.
[2022-02-06 13:38] VITALS: BP 120/47
[2022-02-06 17:24] LABS: EOSINOPHILS % (MANUAL) 3 % (0-4); LYMPHOCYTES % (MANUAL) 22 % (16-48); MONOCYTES % (MANUAL) 8 % (0-11.0); NEUTROPHILS % (MANUAL) 66 (42-76); REACTIVE LYMPHOCYTES 1 % (0-0)
== END 2022-02-06 13:40 | disposition home or self-care (01) ==
LOC: ER 10:09
DX: K70.31 Alcoholic cirrhosis of liver with ascites (principal); F17.200 Nicotine dependence, unspecified, uncomplicated; Z79.899 Other long term (current) drug therapy
CPT/HCPCS: 36415; 76705-TC; 80048-TC; 80076-TC; 85025-TC; 85730-TC

== ENCOUNTER 2022-03-05 14:41 | Emergency (ER) | payer OTHER ==
[~2022-03-05] VITALS: Ht 175.3 cm; Wt 99.8 kg
[~2022-03-05 14:41] MED LIST changes: -CYCL5TAB PO; +FINA5TAB11 PO; -HYDR-4209 PO; -IBUP-1957 PO; +QUET100T PO
--- NOTE | 2022-03-05 15:56 | NUR ---
TO ER BED 7, BIBS C/O ABDOMINAL PAIN [id number], +DIARRHEA AND NAUSEA, HX OF CIRRHOSIS AND ASCITES, AMBULATORY, AAOX3, BREATHING EVEN AND NON LABORED, AWAITING MD SANCHEZ
--- NOTE | 2022-03-05 16:15 | NUR ---
DR MURRAY AT BEDSIDE
[2022-03-05] MEDS ORDERED: ONDANSETRON HCL/PF 4 MG/2 ML VIAL IVP ONE (16:30)
[2022-03-05] MEDS ORDERED: IV NS 0.9% 1,000 ML BAG IV ONE (16:30)
[2022-03-05] MEDS ORDERED: MORPHINE SULFATE INJ 2 MG/ML DISP.SYRIN IV ONE (16:30)
[2022-03-05 16:36] LABS: BILIRUBIN,URINE NEGATIVE (NEGATIVE); COLOR,URINE YELLOW (YELLOW); LEUKOCYTE ESTERASE ,URINE NEGATIVE (NEGATIVE); NITRITE, URINE NEGATIVE (NEGATIVE); PH,URINE 6.5 (5.0-8.0); PROTEIN,URINE NEGATIVE (NEGATIVE); UGLUCOSE NEGATIVE (NEGATIVE)
[2022-03-05] MEDS ORDERED: ONDANSETRON HCL/PF 4 MG/2 ML VIAL ONE (16:59)
[2022-03-05] MEDS ORDERED: MORPHINE SULFATE INJ 4 MG/ML DISP.SYRIN ONE (16:59)
[2022-03-05 17:05] LABS: BASOPHILS % (AUTO) 0.4 % (0.0-2.0); EOSINOPHILS % (AUTO) 4.7 % (0.0-6.0); HEMATOCRIT 40 % (39-51); HEMOGLOBIN 13.4 g/dL (13.5-17.5); LYMPHOCYTES # (AUTO) 0.7 K/uL (0.8-4.8); LYMPHOCYTES % (AUTO) 21.2 % (20.0-44.0); MEAN CORPUSCULAR HGB CONC 34 g/dl (31.0-36.0); MEAN CORPUSCULAR VOLUME 98 fL (80-96); MONOCYTES # (AUTO) 0.3 K/uL (0.1-1.30); MONOCYTES % (AUTO) 9.7 % (2.0-12.0); NEUTROPHILS # (AUTO) 2.1 K/uL (1.8-8.9); PLATELET COUNT (AUTO) 75 K/uL (150-450); RED BLOOD CELL COUNT(AUTO) 4.05 MIL/uL (4.5-6.0); WHITE BLOOD COUNT (AUTO) 3.3 K/uL (4.3-11.0)
[2022-03-05 17:16] LABS: CALCIUM, SERUM 8.7 mg/dL (8.5-10.1); CREATININE 1.4 mg/dL (0.6-1.3); POTASSIUM 4.2 mmol/L (3.5-5.1)
[2022-03-05 17:22] LABS: ALBUMIN 3.2 g/dL (3.4-5.0); BILIRUBIN,DIRECT 0.3 mg/dL (0.0-0.2); BILIRUBIN,TOTAL 0.9 mg/dL (0.2-1.0); TOTAL PROTEIN, SERUM 7.2 g/dL (6.4-8.2)
[2022-03-05 17:44] LABS: EOSINOPHILS % (MANUAL) 5 % (0-4); LYMPHOCYTES % (MANUAL) 20 % (16-48); MONOCYTES % (MANUAL) 10 % (0-11.0); NEUTROPHILS % (MANUAL) 65 (42-76)
[2022-03-05] MEDS ORDERED: ONDA4TAB11 PO (17:44)
[2022-03-05] MEDS ORDERED: HYDR-4209 PO (17:44)
--- NOTE | 2022-03-05 18:41 | NUR ---
COVID AND FLU SWABS DONE AND SENT TO LAB
--- NOTE | 2022-03-05 19:34 | NUR ---
REPORT GIVEN TO MAYNOR BALTAZAR FOR KEN
--- NOTE | 2022-03-05 19:41 | NUR ---
CRITICAL: INFLUENZA A POSITIVE, MADE AWARE
--- NOTE | 2022-03-05 20:13 | NUR ---
IV CANNULA REMOVED.
--- NOTE | 2022-03-05 20:13 | NUR ---
Patient discharged to home in stable condition. Written and verbal after care instructions given. Patient verbalizes understanding of instruction.
[2022-03-05 20:14] VITALS: BP 117/76
== END 2022-03-05 20:14 | disposition home or self-care (01) ==
LOC: ER 14:43
DX: J10.2 Influenza due to other identified influenza virus with gastrointestinal manifestations (principal); R10.30 Lower abdominal pain, unspecified; Z20.822 Contact with and (suspected) exposure to COVID-19; K74.60 Unspecified cirrhosis of liver; K80.20 Calculus of gallbladder without cholecystitis without obstruction; R16.1 Splenomegaly, not elsewhere classified; I86.8 Varicose veins of other specified sites
CPT/HCPCS: 36415; 74176; 80048; 80076; 81003; 83605; 83690; 85007; 85025; 87426; 87804; 96361; 96374; 96375; 99284; C9803; J2270; J2405; J7030

== ENCOUNTER 2022-05-24 17:37 | Emergency (ER) | payer OTHER ==
[~2022-05-24] VITALS: Ht 177.8 cm; Wt 99.8 kg
[~2022-05-24 17:37] MED LIST changes: +HYDR-4209 PO; +ONDA4TAB11 PO
--- NOTE | 2022-05-24 17:43 | NUR ---
TO ER BED 11, CAME IN FOR RLQ PAIN AND BLOOD IN STOOL x 3 DAYS, AAOX3, BREATHING EVEN AND NON LABORED, CONNECTED TO MONITOR
[2022-05-24 18:18] LABS: BASOPHILS % (AUTO) 0.4 % (0.0-2.0); EOSINOPHILS % (AUTO) 2.7 % (0.0-6.0); HEMATOCRIT 43 % (39-51); HEMOGLOBIN 14.6 g/dL (13.5-17.5); LYMPHOCYTES # (AUTO) 1.7 K/uL (0.8-4.8); LYMPHOCYTES % (AUTO) 25.7 % (20.0-44.0); MEAN CORPUSCULAR HGB CONC 34 g/dl (31.0-36.0); MEAN CORPUSCULAR VOLUME 97 fL (80-96); MONOCYTES # (AUTO) 0.7 K/uL (0.1-1.30); MONOCYTES % (AUTO) 9.9 % (2.0-12.0); NEUTROPHILS # (AUTO) 4.1 K/uL (1.8-8.9); NEUTROPHILS % (AUTO) 61.3 % (43.0-81.0); PLATELET COUNT (AUTO) 72 K/uL (150-450); RED BLOOD CELL COUNT(AUTO) 4.49 MIL/uL (4.5-6.0); WHITE BLOOD COUNT (AUTO) 6.7 K/uL (4.3-11.0)
[2022-05-24 18:50] LABS: ALBUMIN 3.4 g/dL (3.4-5.0); BILIRUBIN,DIRECT 0.5 mg/dL (0.0-0.2); BILIRUBIN,TOTAL 1.6 mg/dL (0.2-1.0); CALCIUM, SERUM 8.2 mg/dL (8.5-10.1); CREATININE 0.9 mg/dL (0.6-1.3); POTASSIUM 3.6 mmol/L (3.5-5.1)
--- NOTE | 2022-05-24 19:58 | NUR ---
STOOL SAMPLE COLLECTED SENT TO LAB
--- NOTE | 2022-05-24 20:40 | NUR ---
followed up with lab regarding occult blood result.
[2022-05-24 21:33] LABS: OCCULT BLOOD STOOL NEGATIVE (NEGATIVE)
[2022-05-24 21:46] LABS: EOSINOPHILS % (MANUAL) 2 % (0-4); LYMPHOCYTES % (MANUAL) 32 % (16-48); MONOCYTES % (MANUAL) 3 % (0-11.0); NEUTROPHILS % (MANUAL) 63 (42-76)
--- NOTE | 2022-05-24 22:04 | NUR ---
Patient discharged to home in stable condition. Written and verbal after care instructions given. Patient verbalizes understanding of instruction. PT ambulatory with a steady gait
[2022-05-25 03:55] VITALS: BP 131/87
== END 2022-05-25 03:56 | disposition home or self-care (01) ==
LOC: ER 18:28
DX: R10.9 Unspecified abdominal pain (principal); Z79.899 Other long term (current) drug therapy
CPT/HCPCS: 36415; 80048-TC; 80076-TC; 82272-TC; 83690-TC; 85025-TC; 85730-TC; 86850-TC

== ENCOUNTER 2022-06-03 18:49 | Emergency (ER) | payer OTHER ==
[~2022-06-03] VITALS: Ht 177.8 cm; Wt 105.7 kg
[2022-06-03 19:17] VITALS: BP 133/77
[2022-06-03] MEDS ORDERED: CHLO25CA22 PO (19:25)
[2022-06-03] MEDS ORDERED: LORAZEPAM INJ 2 MG/ML VIAL ONE (19:26)
[2022-06-03] MEDS ORDERED: LORAZEPAM INJ 2 MG/ML VIAL IM ONE (19:30)
--- NOTE | 2022-06-03 19:32 | NUR ---
Patient discharged to home in stable condition. Written and verbal after care instructions given. Patient verbalizes understanding of instruction.
== END 2022-06-03 19:32 | disposition home or self-care (01) ==
LOC: ER 18:50
DX: F10.139 Alcohol abuse with withdrawal, unspecified (principal); F17.200 Nicotine dependence, unspecified, uncomplicated; Z79.899 Other long term (current) drug therapy; Y90.9 Presence of alcohol in blood, level not specified
CPT/HCPCS: 99283; 96372; J2060

== ENCOUNTER 2023-02-15 10:46 | Emergency (ER) | payer OTHER ==
[~2023-02-15] VITALS: Ht 175.3 cm; Wt 109.8 kg
[~2023-02-15 10:46] MED LIST changes: +CHLO25CA22 PO
[2023-02-15] MEDS ORDERED: ONDANSETRON HCL/PF - ER 4 MG/2 ML VIAL IV ONE (12:30)
[2023-02-15] MEDS ORDERED: HYDROMORPHONE 1 MG/1 ML DISP.SYRIN IV ONE (12:30)
[2023-02-15] MEDS ORDERED: ONDANSETRON HCL/PF 4 MG/2 ML VIAL ONE (12:37)
[2023-02-15] MEDS ORDERED: HYDROMORPHONE 1 MG/1 ML DISP.SYRIN ONE (12:38)
[2023-02-15 12:40] LABS: BASOPHILS % (AUTO) 0.4 % (0.0-2.0); EOSINOPHILS % (AUTO) 2.1 % (0.0-6.0); HEMATOCRIT 43 % (39-51); HEMOGLOBIN 14.4 g/dL (13.5-17.5); LYMPHOCYTES # (AUTO) 0.8 K/uL (0.8-4.8); LYMPHOCYTES % (AUTO) 19.2 % (20.0-44.0); MEAN CORPUSCULAR HGB CONC 33 g/dl (31.0-36.0); MEAN CORPUSCULAR VOLUME 95 fL (80-96); MONOCYTES # (AUTO) 0.3 K/uL (0.1-1.30); MONOCYTES % (AUTO) 8.2 % (2.0-12.0); NEUTROPHILS # (AUTO) 2.8 K/uL (1.8-8.9); NEUTROPHILS % (AUTO) 70.1 % (43.0-81.0); PLATELET COUNT (AUTO) 70 K/uL (150-450); RED BLOOD CELL COUNT(AUTO) 4.55 MIL/uL (4.5-6.0)
[2023-02-15 12:46] LABS: CALCIUM, SERUM 9.4 mg/dL (8.5-10.1); POTASSIUM 4.9 mmol/L (3.5-5.1)
--- NOTE | 2023-02-15 12:50 | NUR ---
CALLED DR. ALEAH FLOWERS [phone] [facility].
[2023-02-15] MEDS ORDERED: DEXAMETHASONE SOD PHOSPHATE 10 MG/ML VIAL IV ONE (13:30)
[2023-02-15] MEDS ORDERED: DEXAMETHASONE SOD PHOSPHATE 10 MG/ML VIAL ONE (13:46)
--- NOTE | 2023-02-15 14:32 | NUR ---
[facility] [phone] REQUESTING CLINICALS FAXED TO [phone]
--- NOTE | 2023-02-15 14:40 | NUR ---
MRI QUSTIONER DONE BY PT AT BED SIDE
--- NOTE | 2023-02-15 15:24 | NUR ---
COVID SWAB SENT TO LAB
--- NOTE | 2023-02-15 16:00 | NUR ---
TO MRI VIA GARNY STABLE CONDITION AND VS
[2023-02-15 16:02] LABS: ALBUMIN 3.3 g/dL (3.4-5.0); BILIRUBIN,DIRECT 0.2 mg/dL (0.0-0.2); BILIRUBIN,TOTAL 0.7 mg/dL (0.2-1.0); TOTAL PROTEIN, SERUM 6.9 g/dL (6.4-8.2)
--- NOTE | 2023-02-15 16:32 | NUR ---
[facility] CALLED [phone] X [phone] FROM [facility]SPORT WITH MARIVEL MCKEON ETA 1900. IF NEEDED TO EXTEND PLEASE CALL MARIVEL MCKEON.
--- NOTE | 2023-02-15 17:47 | NUR ---
ROOM 412B AT [facility]. CALL [phone] TO GIVE REPORT.
--- NOTE | 2023-02-15 18:32 | NUR ---
HAND OFF REINALDO .BISMARK BALTAZAR IN [facility]
[2023-02-15 19:05] VITALS: BP 98/60
--- NOTE | 2023-02-15 19:10 | NUR ---
HAND OFF PEDRO BALTAZAR
--- NOTE | 2023-02-15 19:42 | NUR ---
[facility] AT BEDSIDE FOR TRANSPORT TO [place].
[2023-02-16 00:19] LABS: BASOPHILS % (MANUAL) 0 % (0.0-2.0); EOSINOPHILS % (MANUAL) 3 % (0-4); LYMPHOCYTES % (MANUAL) 16 % (16-48); MONOCYTES % (MANUAL) 7 % (0-11.0); NEUTROPHILS % (MANUAL) 74 (42-76)
== END 2023-02-15 20:52 | disposition short-term general hospital (02) ==
LOC: ER 10:59
DX: M54.50 Low back pain, unspecified (principal); E11.65 Type 2 diabetes mellitus with hyperglycemia; R26.2 Difficulty in walking, not elsewhere classified; F17.200 Nicotine dependence, unspecified, uncomplicated; Z79.899 Other long term (current) drug therapy; Z20.822 Contact with and (suspected) exposure to COVID-19
CPT/HCPCS: 99285; 72148; 96374; 96375; 87426; 85025; 80048; 80076; 36415; 85730; 87081; 85007; J1100; J2405; J1170; C9803